=== PATIENT | male | born 1940 | race Caucasian/White ===

== ENCOUNTER 2017-12-22 08:51 | Inpatient (IN) | payer OTHER, SELFPAY ==
[2017-12-12 08:45] VITALS: BMI 27.4
[2017-12-22] VITALS (11 sets, daily range): BP systolic 99–122; BP diastolic 53–79; PULSE 87–109; RESP 10–18; TEMP 36.1–37; O2SAT 86–98; BMI 27.4
--- NOTE | 2017-12-22 | DI.RAD.S_ITS ---
PROCEDURE: XR KNEE RT 1TO2V INDICATIONS: POST OP TECHNIQUE: 2 view(s) of the knee acquired. COMPARISON: [facility] [place], CR, XR KNEE ARTHRITIC SERIES , 10/12/2017, 10:27. FINDINGS: Bones: Patient is status post knee joint arthroplasty. The medial hemiarthroplasty has been replaced with a total knee arthroplasty. Hardware components are in expected positions. Visualized bony structures are intact. Soft tissues: Overlying postoperative changes are noted including drainage tubing and skin joan. IMPRESSION: Acute postoperative changes of total right knee arthroplasty revision Dictated by: Sly Corea M.D. on 12/22/2017 at 15:30 Approved by: Sly Corea M.D. on 12/22/2017 at 15:32
[2017-12-22] MEDS: VANCOMYCIN 1,000 MG/200 ML FROZ.PIGGY 200 MG IV (09:30)
[2017-12-22] MEDS: LACTATED RINGERS 1,000 ML 42 ML IV (09:30)
[2017-12-22] MEDS: CELECOXIB 200 MG CAPSULE PO ×2 (09:48→09:49)
[2017-12-22] MEDS: ACETAMINOPHEN 325 MG TABLET 975 MG PO ×2 (09:49→21:59)
--- NOTE | 2017-12-22 11:03 | PM.PREOP ---
Pre-operative Note Interval Note Pre-op Check: History & Physical Reviewed by Physician and Exam Performed
--- NOTE | 2017-12-22 11:16 | P.OP_ITS ---
Operative Date/Time/Diagnoses Date of procedure: 12/22/17 Time of procedure: 11:54 Pre-op diagnosis: Osteoarthritis with history of prior right unicompartment knee arthroplasty Post-op diagnosis: same Procedure & Clinicians Procedure: Revision right total knee arthroplasty all components Same procedure as scheduled: Yes Indications: The patient has had progressively worsening right knee pain with a history of prior right knee medial compartment arthroplasty years ago with radiographic changes consistent with arthritis. Non-operative management has failed and the patient has requested revision right total knee replacement. The risks, benefits and alternatives to surgery were discussed with the patient prior to proceeding. Risks discussed included, but were not limited to, failure to relieve pain, stiffness, infection, nerve damage, deep venous thrombosis, pulmonary embolism, stroke, coma, heart attack, permanent paralysis and , as well as the potential need for eventual revision of the prosthetic. Surgeon: Dorothea Funes Electrical And Instrument Mechanic: Pieter Vanessa Anesthesia Type: General and Spinal Operative Notes Findings: Severe right knee patellofemoral and lateral compartment osteoarthritis without significant loosening of the medial compartment arthroplasty Closure Type: primary Specimen(s): other (Cultures) Implants & Drains: Right [facility] size 6 femur, 5 tibia, size 16 by 100 mm tibial stem, poly 10, patella 38 oval Applied: drain(s) Estimated Blood Loss (mL): 300 Blood products transfused: none Procedure in detail: The patient was seen in the pre-operative area, where the patient identified the right knee as the operative site and this was marked with my initials. The patient received pre-operative antibiotics, and was taken to the operating room and placed on the operative table in the supine position. After satisfactory anesthesia, a radio time sales supervisor out was performed. The right leg was encircled with a tourniquet about the proximal thigh, and the leg was prepared from the toes to the tourniquet with ChloroPrep in the usual fashion and draped through sterile drapes. The leg was elevated and exsanguinated with Eschmark bandage and the tourniquet inflated to [250] mmHg pressure. The knee was approached through an approximately 20 cm incision centered over the patella and carried into the knee through a medial parapatellar arthrotomy. A portion of the medial and lateral meniscus was resected. Soft tissue was carefully mobilized around the patella the patella was measured with a caliper. Bone was resected from the patella and the patellar height was reconstituted with up an appropriate sized patellar component. A cover was then placed on the patella. A small amount of additional medial and lateral meniscus was resected. Fluid was sent for cultures and additional cultures were taken from underneath the tibial component and the femoral component. A drill hole was made in the femur at and a distal femoral cut with pins were placed for a +2 cut. I resected the lateral aspect and partially around the medial femoral component. I left the pins in then work some friend circumferentially around the medial femoral condylar component removing it without difficulty. I placed the block back on the pins and finished the femoral cut. There was minimal bone loss from the medial femoral condyle. Retractors were then placed around the tibia. I used a combination of the revision osteotomes to meticulously freed the tibial component. A total of 10 mm were resected from the less worn lateral side that resulted in about a 2 mm cut off the medial side. Osteotomes were used to meticulously free the tibial component and to remove it. The tibial cut was finished using and at the tibial extramedullary guide. The extension gap was checked. It looked like it was between a 10mm blocks for extension balance. It was well balanced in full extension. The tibia was a size 5. The femoral component was a size 6. Placed an osteotome which was the correct thickness in the deficient posterior medial femoral condylar gap and set the femur in 3? of external rotation. The 6 femur was pinned into place and finishing cuts were made. There was no evidence of notching. The anterior, posterior and chamfer cuts were then made. The posterior osteophytes and soft tissues were then removed. The posterior capsule was injected with part of a mixture of 60 ml 0.25% Marcaine mixed with 20 ml Exparel for post operative pain control. The remainder of this mixture was injected into the capsule and subcutaneous tissues during cement curing. Trial reduction with a 6 femur and 5 tibia and a 10 poly showed excellent range of motion good tracking of the patella. He had some softening and some deficiency of his tibia and I opted to stem the tibial component. He also is chronically on steroids for ulcerative colitis. Pinned the tray into place reamed up to 16 did the punch drill and ream and was noted to fit well. Trial tibial and femoral components were then placed and the knee placed through a range of motion. Range of motion was [0-130], with good stability throughout the range. The trials were then removed, and the tibia was finished. The bone was prepared with pulsatile lavage, and dried with a sponge. Cement was applied and the final prosthetics placed. Excess cement was removed during and after cement curing. A brief Betadine soak was performed. After confirming there was no extruded cement posteriorly, the final tibial insert was placed. The knee was copiously irrigated and the tourniquet deflated. Hemostasis was obtained with the [Aquamantys system]. A drain was placed and brought out superolaterally. The capsule was closed with interrupted # 1 black braided suture. The subcutaneous layer was closed with barbed sutures, and the skin with a running 3 -0 V-Lock suture and Candice. An Aquacel Ag dressing was applied and the patient was taken to recovery having tolerated the procedure well. Complications: none Condition: stable Disposition: Acute Care Plan for aftercare: The patient will be maintained on a standard total knee replacement protocol with weight bearing as tolerated. The patient will receive aspirin and sequential compression devices for DVT prophylaxis. The patient will be discharged home when safe for the home environment.
[2017-12-22] MEDS: CEFAZOLIN 2 GM/100 ML FROZ.PIGGY IV ×2 (12:00→20:22)
--- NOTE | 2017-12-22 12:41 | SUR.OPER ---
Supine on padded OR bed. Pillow under head, arms secured on padded armboards <90 degree abduction. Safety belt across torso. Non-operative leg secured with tape over blanket over lower leg. Operative leg secured in DeMayo/Bobby positioner. Foam padded brace at thigh of operative leg.
[2017-12-22] MEDS: BUPIVACAINE LIPOSOME 266 MG/20 ML VIAL INJ (12:58)
[2017-12-22] MEDS: BUPIVACAINE 0.25% W/ EPI VIAL 50 ML INJ (13:10)
[2017-12-22] MEDS: SODIUM CHLORIDE 0.9% 1,000 ML 84 ML IV (14:48)
--- NOTE | 2017-12-22 15:44 | SUR.PHASEI ---
Report called to Summer.
--- NOTE | 2017-12-22 16:07 | SUR.PHASEI ---
Pt transferred to the floor. Vs stable. Report to Summer. Drsg cdi, hv clamped. + Rt radial pulse. Pt moving BLE. Belongings bag and glasses with pt
[2017-12-22] MEDS: LACTATED RINGERS 1,000 ML 125 ML IV (17:35)
[2017-12-22] MEDS: SODIUM CHLORIDE 0.9% FLUSH 10 ML IV (17:35)
[2017-12-22] MEDS: FISH OIL 1,000 MG CAPSULE 1000 MG PO (20:20)
[2017-12-22] MEDS: DOCUSATE 100 MG CAPSULE PO (20:20)
--- NOTE | 2017-12-22 21:40 | PC.NURSE ---
POST-OP Received pt at approximately 1600 via bed accompanied by INFANTRY UNIT LEADER. A&Ox3, pleasant and cooperative with care. RLE slighlt cooler to touch compared to LLE. ORDAZ with slight RLE weakness, 3-4/5 strength. pt denies any numbness/tingling. pt denies any pain. able to ambulate with bathroom and sit in chair with 1PA and FWW. hemovac intact, about 200ml bloody output this shift. pt oriented to room and call light.
[2017-12-23 00:21] VITALS: BP 106/69; PULSE 76; RESP 16; TEMP 36.7; O2SAT 96
[2017-12-23] MEDS: OXYCODONE IR 10 MG TABLET 5 MG PO ×3 (00:25→14:00)
--- NOTE | 2017-12-23 01:18 | PC.NURSE ---
Addendum entered by Mitzi Taylor R.N. 12/23/17 03:50: Patient informed of culture results and need for isolation. Questions asked/answered. Original Note: Addendum entered by Mitzi Taylor R.N. 12/23/17 02:56: Noted synovial fluid culture is growing gram + cocci so patient placed on contact isolation Original Note: Patient is alert and oriented. Breath sounds CTA with RA sat of 94%. HRR. Denies nausea. BT present but denies flatus as yet. Voiding per urinal and denies dysuria, frequency, urgency or incontinence. Is able to move self in bed. Aquacel dressing to right knee intact and is covered with fredy wrap; no drainage noted. Hemovac is intact and compressed. Does complain of throbbing 2/10 pain in right knee so medicated with Oxycodone and ice pack applied. CMS is intact. Wearing bilateral SCD's. Fall risk score is high and bed alarm is activated and explained to patient who verbalizes understanding.
[2017-12-23] MEDS: LACTATED RINGERS 1,000 ML 125 ML IV (01:35)
[2017-12-23] MEDS: CEFAZOLIN 2 GM/100 ML FROZ.PIGGY IV (03:46)
[2017-12-23 05:41] LABS: Hematocrit 36.5 % (41-53); Hemoglobin 12.3 g/dL (13.5-17.5)
[2017-12-23 05:55] VITALS: BP 121/81; PULSE 85; RESP 16; TEMP 36.4; O2SAT 95
[2017-12-23] MEDS: ACETAMINOPHEN 325 MG TABLET 975 MG PO (08:16)
[2017-12-23] MEDS: POLYETHYLENE GLYCOL 3350 17 GM POWD.PACK PO (08:18)
[2017-12-23] MEDS: MESALAMINE 400 MG CAP.DRTAB. 1200 MG PO (08:18)
[2017-12-23] MEDS: FISH OIL 1,000 MG CAPSULE 1000 MG PO (08:18)
[2017-12-23] MEDS: DOCUSATE 100 MG CAPSULE PO (08:20)
[2017-12-23] MEDS: ASPIRIN EC 81 MG TABLET 162 MG PO (08:20)
[2017-12-23] MEDS: NAPROXEN 250 MG TABLET PO (08:20)
[2017-12-23] MEDS: predniSONE 10 MG TABLET PO (08:20)
[2017-12-23 09:00] VITALS: BP 121/70; PULSE 81; RESP 16; O2SAT 94
--- NOTE | 2017-12-23 09:30 | PT.IIE ---
Current Diagnoses Unilateral primary osteoarthritis, right knee (12/22/17) Presence of right artificial knee joint (12/22/17) Surgery Performed Operation Date: 12/22/17 10:45 Actual Procedures p Total Knee Arthroplasty Revision(Right) - Dorothea Funes MD Surgical History (Last Updated 12/12/17 @ 08:58 by Melody Longoria, RN) History of bilateral knee arthroplasty (Acute) History of colonoscopy (Acute) History of tonsillectomy (Acute) History of total knee arthroplasty (Acute) History of vasectomy (Acute) Medical History (Last Updated 12/12/17 @ 08:54 by Melody Longoria, RN) Arthritis (Acute) Chronic pain (Acute) History of onychomycosis (Acute) Osteoarthrosis (Acute) Physical Therapy Inpatient Evaluation/Re-Eval M1 PT/OT-IP Prior Functional Status Start: 12/23/17 10:53 Freq: NEEDED Status: Active Protocol: Document 12/23/17 09:30 MDD (Rec: 12/23/17 11:02 MDD [email or web address]) Medical Review Prior Functional Status Medical History Reviewed Yes Mobility and Gait independent without AD Activities of Daily Living and IADL's independent without AD Social History Household Members spouse Living Arrangements House Number of Floors (Floors) One Floor Number of Stairs To Enter/Railing? NA Home Environment High Toilet Walk in Shower Built-In Shower Seat Home Equipment Front Wheel Walker Additional Social History Comment walk in tub and shower with built in shower seat. Pt lives in [facility] and his Maryuri is retired and available for assist in the home 03/01. M2 PT-IP Current Condition Start: 12/23/17 10:53 Freq: NEEDED Status: Active Protocol: Document 12/23/17 09:30 MDD (Rec: 12/23/17 11:02 MDD [email or web address]) Physical Therapy Current Condition Current Condition Evaluation Date 02/23/18 Treatment Diagnosis s/p R TKA, gait impairment, impaired mobility Onset Date 02/22/18 Weight Bearing Status Weight Bearing Status Weight Bear as Tolerated M3 PT-IP Subjective Start: 12/23/17 10:53 Freq: NEEDED Status: Active Protocol: Document 12/23/17 09:30 MDD (Rec: 12/23/17 11:02 MDD [email or web address]) Subjective Physical Therapy Visit Type Type Initial Evaluation Visit Start Time 08:50 Visit Stop Time 09:30 Total Visit Minutes 40 Number of WELT STITCH CLEANER Visits 0 Physical Therapy Visit Comments Patient Comments Pt is very motivated to go home. Reports he was up this am and ambulating in the room. Very little pain reported considering. Therapy Pain Assessment Pain When Pain Assessed At Rest Pain Present Pain Present Pain Reported Location Right Knee Intensity 5 Scale Used Numeric (1 - 10) Description Aching M4 PT-IP Mobility and Gait Start: 12/23/17 10:53 Freq: NEEDED Status: Active Protocol: Document 12/23/17 09:30 MDD (Rec: 12/23/17 11:02 MDD [email or web address]) PT-Bed Mobility Assessment Rolling Type of Rolling Bilateral Level of Assist Independent Supine to Sit Supine to Sit Independent Sit to Supine Sit to Supine Independent Scooting Scooting to Edge of Bed Independent Scooting Up and Down in Bed Independent PT-Transfer Assessment Sit to and From Stand Sit to and from Stand Standby Assistance Equipment Transfer Assistive Device Gait Belt Front Wheeled Walker Transfers Transfer Destination Bed Transfer Ability Level of Assist Standby Assistance Comments Mobility Comments standby assist due to iv attachment Gait Assessment Gait Gait Assistance Required: Standby Assistance Distance (Feet) (feet) 30 Able to Maintain Weight Bearing Status Yes During Gait Assistive Devices Assistive Device Gait Belt Front Wheeled Walker Orthotic/Prosthetic Devices or Brace: No Gait Deviations General Gait Pattern Antalgic Comments Gait Comments pt ambulating well with no balance deficits noted. SBA advised due to IV and drain lines PT-Balance Assessment Sitting Balance and Reactions Static Sitting Balance Ability Normal Dynamic Sitting Balance Ability Normal Standing Balance and Reactions Static Standing Balance Ability Normal Dynamic Standing Balance Ability Good M5 PT-IP Objective Assessments Start: 12/23/17 10:53 Freq: NEEDED Status: Active Protocol: Document 12/23/17 09:30 MDD (Rec: 12/23/17 11:02 MDD [email or web address]) Orientation Orientation/Cognition Level of Alertness Alert Orientation Name Age Birthday Month Date Year Day of Week Place Situation Language Function Ability No Deficits Noted Safety Awareness Understands Safety Issues Memory Description No Deficits Noted Gross Range of Motion Lower Extremity ROM Assessment Right Impaired Strength Lower Extremity Strength Assessment Within Functional Limits Coordination Assessment Gross Coordination Gross Coordination WNL Sensation Assessment Sensation Gross Sensation WNL M6 PT-IP Treatment Start: 12/23/17 10:53 Freq: NEEDED Status: Active Protocol: Document 12/23/17 09:30 MDD (Rec: 12/23/17 11:02 MDD [email or web address]) Physical Therapy Treatment Exercises Exercises Ankle Pumps Gluteal Sets Quad Sets Heel Slides Straight Leg Raises Supine Hip Abduction Knee ROM Measurement -8 to 103 (R) Education Education Provided Precautions Weight Bearing Status Post-Op Packet Safety M7 PT-IP Assessment and Plan Start: 12/23/17 10:53 Freq: NEEDED Status: Active Protocol: Document 12/23/17 09:30 MDD (Rec: 12/23/17 11:02 MDD [email or web address]) PT Summary Assessment and Plan Potential Rehabilitation Potential Excellent Status of Condition at Evaluation Stable Summary Impairments Pain ROM Gait Activity Tolerance Progress Towards Goals Progressing Toward Goals Assessment Summary Pt demonstrating excellent mobility and R knee ROM with very little pain. Had good understanding of exercises provided today. Review HEP and increase gait distance in afternoon prior to d/c home. Goals Bed Mobility Goal Independent Transfer Goal Independent Gait Goal Independent Gait Distance 150 feet on level ground with front wheeled walker Days to Meet Goals 1 Frequency of Treatment Frequency Of Treatment Twice a Day Treatment Plan Physical Therapy Treatment Plan Transfer Training Gait Training Therapeutic Exercise Post Op Education Discharge Planning Recommendations To Nursing Amount of Assist Needed Standby Assistance Discharge Recommendations PT Discharge Recommendations Home Home with Assistance
--- NOTE | 2017-12-23 12:05 | PT.IPTN ---
Current Diagnoses Unilateral primary osteoarthritis, right knee (12/22/17) Presence of right artificial knee joint (12/22/17) Surgery Performed Operation Date: 12/22/17 10:45 Actual Procedures p Total Knee Arthroplasty Revision(Right) - Dorothea Funes MD Physical Therapy Treatment Note M2 PT-IP Current Condition Start: 12/23/17 10:53 Freq: NEEDED Status: Active Protocol: Document 12/23/17 09:30 MDD (Rec: 12/23/17 11:02 MDD [email or web address]) Physical Therapy Current Condition Current Condition Evaluation Date 02/23/18 Treatment Diagnosis s/p R TKA, gait impairment, impaired mobility Onset Date 02/22/18 Weight Bearing Status Weight Bearing Status Weight Bear as Tolerated M3 PT-IP Subjective Start: 12/23/17 10:53 Freq: NEEDED Status: Active Protocol: Document 12/23/17 09:30 MDD (Rec: 12/23/17 11:02 MDD [email or web address]) Subjective Physical Therapy Visit Type Type Initial Evaluation Visit Start Time 08:50 Visit Stop Time 09:30 Total Visit Minutes 40 Number of ORTHO TECH Visits 0 Physical Therapy Visit Comments Patient Comments Pt is very motivated to go home. Reports he was up this am and ambulating in the room. Very little pain reported considering. Therapy Pain Assessment Pain When Pain Assessed At Rest Pain Present Pain Present Pain Reported Location Right Knee Intensity 5 Scale Used Numeric (1 - 10) Description Aching M4 PT-IP Mobility and Gait Start: 12/23/17 10:53 Freq: NEEDED Status: Active Protocol: Document 12/23/17 09:30 MDD (Rec: 12/23/17 11:02 MDD [email or web address]) PT-Bed Mobility Assessment Rolling Type of Rolling Bilateral Level of Assist Independent Supine to Sit Supine to Sit Independent Sit to Supine Sit to Supine Independent Scooting Scooting to Edge of Bed Independent Scooting Up and Down in Bed Independent PT-Transfer Assessment Sit to and From Stand Sit to and from Stand Standby Assistance Equipment Transfer Assistive Device Gait Belt Front Wheeled Walker Transfers Transfer Destination Bed Transfer Ability Level of Assist Standby Assistance Comments Mobility Comments standby assist due to iv attachment Gait Assessment Gait Gait Assistance Required: Standby Assistance Distance (Feet) (feet) 30 Able to Maintain Weight Bearing Status Yes During Gait Assistive Devices Assistive Device Gait Belt Front Wheeled Walker Orthotic/Prosthetic Devices or Brace: No Gait Deviations General Gait Pattern Antalgic Comments Gait Comments pt ambulating well with no balance deficits noted. SBA advised due to IV and drain lines PT-Balance Assessment Sitting Balance and Reactions Static Sitting Balance Ability Normal Dynamic Sitting Balance Ability Normal Standing Balance and Reactions Static Standing Balance Ability Normal Dynamic Standing Balance Ability Good M5 PT-IP Objective Assessments Start: 12/23/17 10:53 Freq: NEEDED Status: Active Protocol: Document 12/23/17 09:30 MDD (Rec: 12/23/17 11:02 MDD [email or web address]) Orientation Orientation/Cognition Level of Alertness Alert Orientation Name Age Birthday Month Date Year Day of Week Place Situation Language Function Ability No Deficits Noted Safety Awareness Understands Safety Issues Memory Description No Deficits Noted Gross Range of Motion Lower Extremity ROM Assessment Right Impaired Strength Lower Extremity Strength Assessment Within Functional Limits Coordination Assessment Gross Coordination Gross Coordination WNL Sensation Assessment Sensation Gross Sensation WNL M6 PT-IP Treatment Start: 12/23/17 10:53 Freq: NEEDED Status: Active Protocol: Document 12/23/17 09:30 MDD (Rec: 12/23/17 11:02 MDD [email or web address]) Physical Therapy Treatment Exercises Exercises Ankle Pumps Gluteal Sets Quad Sets Heel Slides Straight Leg Raises Supine Hip Abduction Knee ROM Measurement -8 to 103 (R) Education Education Provided Precautions Weight Bearing Status Post-Op Packet Safety M7 PT-IP Assessment and Plan Start: 12/23/17 10:53 Freq: NEEDED Status: Active Protocol: Document 12/23/17 09:30 MDD (Rec: 12/23/17 11:02 MDD [email or web address]) PT Summary Assessment and Plan Potential Rehabilitation Potential Excellent Status of Condition at Evaluation Stable Summary Impairments Pain ROM Gait Activity Tolerance Progress Towards Goals Progressing Toward Goals Assessment Summary Pt demonstrating excellent mobility and R knee ROM with very little pain. Had good understanding of exercises provided today. Review HEP and increase gait distance in afternoon prior to d/c home. Goals Bed Mobility Goal Independent Transfer Goal Independent Gait Goal Independent Gait Distance 150 feet on level ground with front wheeled walker Days to Meet Goals 1 Frequency of Treatment Frequency Of Treatment Twice a Day Treatment Plan Physical Therapy Treatment Plan Transfer Training Gait Training Therapeutic Exercise Post Op Education Discharge Planning Recommendations To Nursing Amount of Assist Needed Standby Assistance Discharge Recommendations PT Discharge Recommendations Home Home with Assistance
--- NOTE | 2017-12-23 12:18 | P.DS_ITS ---
History of Present Illness Date Patient Seen: 12/23/17 Time Patient Seen: 12:13 Chief complaint: [id number] Narrative: Status post revision right total knee arthroplasty Discharge Providers Date of admission: 12/22/17 08:51 Primary care physician: Avinash Bar MD Consults: 12/22/17 16:02 Consult to Discharge Planning Routine Comment: Consult to Physical Therapy Evaluate & Treat Comment: Physician Instructions: postop TKA protocol Consult to Respiratory Therapy Evaluate & Treat Comment: Physician Instructions: Evaluate and treat Discharge provider: Debbie Grimm PA-C Summary Discharge Diagnosis: status post revision right total knee arthroplasty Hospital Course: Horacio was admitted for revision right total knee arthroplasty with Dr. Funes and he consented to procedure. On postop day 1. He was feeling well and wanted to go home. He was up and ambulating with physical therapy. There was some question about the cultures having scant positive cocci , microbiology was called and discussed that it is likely debris. Patient does not need antibiotics at this time. Continue current pain control. On day of discharge he was eating and voiding without difficulty or assistance. Calves were soft, compressible, nontender bilaterally. Status at Discharge Functional status at discharge: uses cane/walker Exam Vital Signs (past 8 hours): - 12/23/17 05:55 12/23/17 09:00 Temperature 97.5 F L Pulse Rate 85 81 Respiratory Rate 16 16 Blood Pressure 121/81 H 121/70 H Pulse Oximetry 95 94 Oxygen Delivery Method Room Air Oxygen Flow Rate 0 Narrative Exam Narrative: Patient lying in bed in no acute distress. Drain was clamped last night. Okayed to unclamp at 10:00 a.m. this morning. Plan to remove Hemovac drain before discharge. Dressing on right knee CDI, Richard wrap remains in place. Calves are soft, compressible, nontender bilaterally. Sensation intact to light touch throughout bilateral lower extremities. Pulses are symmetrical. His pain is well controlled. He has been up and ambulating with therapy. Denies any chest pain nausea, or vomiting. Objective Labs Result Diagrams: 12/23/17 05:00 Labs: Laboratory Results - last 24 hr 12/23/17 05:00 Hgb 12.3 L Hct 36.5 L Discharge Plan Discharge Plan Patient Disposition: Home, Self-Care Discharge comment: DC home today, remove drain prior to discharge Discharge Med Rec/Prescriptions Prescriptions: New acetaminophen 325 mg Tablet 325 mg PO Q4HR Qty: 60 RF: 0 docusate sodium 100 mg Capsule 100 mg PO BID Qty: 60 RF: 0 naproxen 250 mg Tablet 250 mg PO DAILY Qty: 30 RF: 0 oxycodone 5 mg capsule 5 mg PO Q4HR Qty: 50 RF: 0 Continue [FISH OIL] 1,000 mg PO BID Qty: 0 RF: 0 mesalamine [Lialda] 1.2 GM tablet,delayed release (DR/EC) 1.2 gm PO QDAY Qty: 90 RF: 3 prednisone 10 MG tablet 10 mg PO AMCC Qty: 90 RF: 3 paroxetine HCl [Paxil] 40 mg tablet 40 mg PO QDAY Qty: 90 RF: 1 Changed aspirin 81 MG tablet,delayed release (DR/EC) 81 mg PO BID Qty: 0 RF: 0 Discontinued naproxen sodium [Aleve] 220 mg Tablet 220 mg PO DAILY RF: 0 Follow up/Referrals: Dorothea Funes MD [Physician] - (Please follow up in 5-7 days with our office) Provider Discharge Instructions Diet: Diet as Tolerated Cold/Heat Therapy: As needed Wound Care Report to your healthcare provider any signs of infection, such as:: chills, fever and increased pain Dressing: Please leave Aquacel dressing in place for 10-14 days Visit Report/Discharge Packet Instructions: DI for Knee Replacement Discharge Data Primary Care Provider: Avinash Bar Attending Provider: Dorothea Funes Admit Date/Time: 12/22/17 08:51 Quality VTE Deep Vein Thrombosis/Pulmonary Embolism Present on Admission: No
[2017-12-23 13:00] VITALS: BP 103/66; PULSE 85; RESP 16; TEMP 36.7; O2SAT 96
--- NOTE | 2017-12-23 15:29 | PC.NURSE ---
DISCHARGE: HV WAS DC'D THIS AFTERNOON W/ 60CC'S OF SANG DRAINAGE AFTER UNCLAMPED AT 1030 AFTER DISCUSSION WITH ORTHO PA. NO BLEEDING AFTER DC'D. 2X2 AND TEGADERM PLACED. IV DC'D INTACT. VOIDED 800CC'S URINE. PATIENT'S RIDE ARRIVED AND HE WAS ESCORTED BY WC BY [employer] W/ ALL BELONGINGS, SCRIPTS AND PAPERWORK IN NO S/SX'S OF DISTRESS.
== END 2017-12-23 14:45 | disposition home or self-care (01) | DRG 468 ==
PROVIDERS: Admitting Provider Orthopaedic Surgery; Family Provider Family Medicine; PCP Family Medicine; Visit Provider Orthopaedic Surgery
PROC: 0SPV0JZ Removal of Synthetic Substitute from Right Knee Joint, Tibial Surface, Open Approach (ICD-10-PCS; principal; 2017-12-22 10:45)
DX: T84.032A Mechanical loosening of internal right knee prosthetic joint, initial encounter (principal); M17.11 Unilateral primary osteoarthritis, right knee; E78.5 Hyperlipidemia, unspecified; F32.9 Major depressive disorder, single episode, unspecified; Z87.891 Personal history of nicotine dependence
CPT/HCPCS: 36415; 73560; 85014; 85018; 87070; 87075; 87205; 97110; 97116; 97161; C1776; A9270; C9290; J0690; J1100; J2250; J2405; J2704; J3010; J3370

== ENCOUNTER 2018-01-27 09:45 | Outpatient (RCR) | payer OTHER, SELFPAY ==
[2017-12-22 16:06] VITALS: BMI 27.4
--- NOTE | 2018-01-10 13:10 | PT.OIE ---
Current Diagnoses Unilateral primary osteoarthritis, right knee (01/09/18) Presence of right artificial knee joint (01/09/18) Presence of left artificial knee joint (01/09/18) Past Medical History (Last Updated 12/12/17 @ 08:54 by Melody Longoria RN) Arthritis (Acute) Chronic pain (Acute) History of onychomycosis (Acute) Osteoarthrosis (Acute) Past Surgical History (Last Updated 12/12/17 @ 08:58 by Melody Longoria RN) History of bilateral knee arthroplasty (Acute) History of colonoscopy (Acute) History of tonsillectomy (Acute) History of total knee arthroplasty (Acute) History of vasectomy (Acute) Provider Visit Care Team Role Provider Type Aivnash Bar MD Family Provider Physician Primary Care Provider Specialty: Family Practice Address: [address] [place] [address], [id number] Email: [email or web address] Dorothea Funes MD Attending Provider Physician Specialty: Orthopedic Surgery Address: [address] [place] [address], [id number] Email: [email or web address] Physical Therapy Initial Evaluation PT-OP-A Visit Information Start: 01/09/18 16:06 Freq: Status: Active Protocol: Document 01/09/18 17:01 EA (Rec: 01/09/18 17:37 EA [id number]) Out-Patient Physical Therapy Visit Information Visit Information Visit Type Initial Evaluation Visit Start Time 13:00 Visit Stop Time 13:40 Total Visit Minutes 40 Visit Number 1 Evaluation Information Evaluation Date 01/09/18 PT-OP-B Current Condition Start: 01/09/18 16:06 Freq: Status: Active Protocol: Document 01/09/18 17:01 EA (Rec: 01/09/18 17:37 EA [id number]) Current Condition History of Current Condition Onset Date S/P R TKA 12/22/17 Current Complaints C/O Right knee pain, weakness and limitation of motion History of Current Condition S/P R TKA 12/22/17 with no secondary healing. Future Testing and Treatments Planned Surgeons follow up 2 weeks from today's date. Treatment Goals Patient/Caregiver Goals Back to PLOF: Regular gym exercises and indep in ADL's without use of walking device. Prior Functional Status Baseline Function- ADL's Independent Baseline Function- Mobility Independent Baseline Function- Recreation/Hobbies Daily fitness exercises in the gym Current Functional Impairments (Reported) Functional Limitations- ADL's Indep with minimal difficulty Functional Limitations- Mobility/Gait Antalgic gait, minimal Functional Limitations- Recreation/ Unable to come back to regular Hobbies fitness activity PT-OP-C Subjective Start: 01/09/18 16:06 Freq: Status: Active Protocol: Document 01/09/18 17:01 EA (Rec: 01/09/18 17:37 EA [id number]) OP-PT Subjective Patient Comments Patient Comments S/P R TKA 12/22/17 C/O Right knee pain, weakness and limitation of motion. Back to PLOF: Regular gym exercises and indep in ADL's without use of [employer] device . Patient Reported Progress Improving Patient Questionnaires Lower Extremity Functional Scale LEFS Impairment 40 to 59% Impaired (Score 32- 47) PT-OP-G Mobility & Gait Start: 01/09/18 16:06 Freq: Status: Active Protocol: Document 01/09/18 17:01 EA (Rec: 01/09/18 17:37 EA [id number]) OP Gait Assessment Gait Gait Assistance Required: Independent Able to Maintain Weight Bearing Status Yes During Gait Gait Deviations General Gait Pattern Antalgic Factors Limiting Gait Function Factors Limiting Gait Function Decreased Strength Limited Range of Motion Pain Comments Gait Comments Mild antalgic Stair Climbing Evaluation Evaluation Level of Assist On Stairs Independent Devices Stair Climbing Assistive Devices None Technique/Endurance Stair Climbing Direction Ascend and Descend Stair Climbing Technique Step Over Step Comments Stair Climbing Comments slight difficulty during descent at 4' steps PT-OP-J Posture/Palpation/Skin Start: 01/09/18 16:06 Freq: Status: Active Protocol: Document 01/09/18 17:01 EA (Rec: 01/09/18 17:37 EA [id number]) Palpation Assessment Location One Palpation Location Right quads and hamstring, knee joint, scar tissue Palpation Findings Edema Tenderness PT-OP-K Range of Motion Start: 01/09/18 16:06 Freq: Status: Active Protocol: Document 01/09/18 17:01 EA (Rec: 01/09/18 17:37 EA [id number]) Knee Goniometric Range of Motion Knee Measured in Degrees Right Patient Position Supine Flexion Active (degrees) 117 Extension Active (degrees) 0 Left Patient Position Supine Flexion Active (degrees) 125 Extension Active (degrees) 0 Knee ROM Limitations Knee ROM Limitations Soft Tissue Tightness Swelling PT-OP-M Strength Start: 01/09/18 16:06 Freq: Status: Active Protocol: Document 01/09/18 17:01 EA (Rec: 01/09/18 17:37 EA [id number]) Knee Strength Knee Manual Muscle Testing Right Flexion (S2) 4- Good- Extension (L3) 3+ Fair+ Reason Not Measured Orthopedic Precautions Left Flexion (S2) 5 Normal Extension (L3) 5 Normal PT-OP-Q Treatments Start: 01/09/18 16:06 Freq: Status: Active Protocol: Document 01/09/18 17:00 EA (Rec: 01/10/18 07:29 EA [id number]) Self-Care/Home Management Treatment Education Patient Education Home Exercise Program Joint Protection Pain Management Safety PT-OP-T Assessment and Plan Start: 01/09/18 16:06 Freq: Status: Active Protocol: Document 01/09/18 17:01 EA (Rec: 01/09/18 17:37 EA [id number]) Physical Therapy Assessment Rehab Potential Rehabilitation Potential Excellent Evaluation Complexity Number of Personal Factors/Comorbidities 0 Number of Body Systems Impaired 1-2 Clinical Presentation at Evaluation Stable Impairments Impairments Edema Gait Pain ROM Soft Tissue Mobility Strength Goals Four Impairment Mid joint increased circumferential measurement by 1.5 R> L Manager Of Data Goal (LTG) Patient will decrease knee circumference to less than 16 to improve ROM LTG Duration 4 wks Three Impairment LEFS score of 53/80 Retirement Goal (LTG) Patient will have LEFS score of at least 60 LTG Duration 4 wks Two Impairment Decreased strength: 3+/5 with right knee extension Retirement Goal (LTG) Patient will exhibit MMT on right knee extensor of at least 4/5 for functional mobility LTG Duration 4 wks One Impairment 8 degrees knee flexion deficits Manager Of Data Goal (LTG) Patient will exhibits 0-125 deg active knee flexion for functional mobility/activity LTG Duration 4 wks Assessment Summary Assessment S/P Right TKA 12/22/17, pleasant 77 y/o male patient who presented today with no secondary healing. Patient demonstrates difficulty with functional mobility due to LOM , swelling and weakness. Patient will benefit with skilled PT to reach previous level of function. Patient is a good candidate for skilled PT. Physical Therapy Plan Frequency and Duration Frequency of Treatment 2x/Week Plan of Care Start Date 01/09/18 Plan of Care End Date 03/06/18 Therapeutic Interventions Therapeutic Interventions Balance Training Gait Training Home Exercise Program Joint Mobilizations Manual Therapy Patient/Caregiver Education Self-Care/Home Management Soft Tissue Mobilization Therapeutic Exercises Modalities Cold Pack/Ice Massage Ultrasound Next Visit Focus/Plan Next Note Type Treatment Note Next Visit Plan 1. Increase ROM 2. Decrease swelling 3. decrease pain 4. decrease scarring
--- NOTE | 2018-01-10 13:12 | PT.OPPOC ---
Current Diagnoses Unilateral primary osteoarthritis, right knee (01/09/18) Presence of right artificial knee joint (01/09/18) Presence of left artificial knee joint (01/09/18) Provider Visit Care Team Role Provider Type Avinash Bar MD Family Provider Physician Primary Care Provider Specialty: Family Practice Address: [address] [place] [address], [phone] Email: [email or web address] Dorothea Funes MD Attending Provider Physician Specialty: Orthopedic Surgery Address: [address] [place] [address], [phone] Email: [email or web address] Plan Of Care PT-OP-T Assessment and Plan Start: 01/09/18 16:06 Freq: Status: Active Protocol: Document 01/09/18 17:01 EA (Rec: 01/09/18 17:37 EA [id number]) Physical Therapy Assessment Rehab Potential Rehabilitation Potential Excellent Evaluation Complexity Number of Personal Factors/Comorbidities 0 Number of Body Systems Impaired 1-2 Clinical Presentation at Evaluation Stable Impairments Impairments Edema Gait Pain ROM Soft Tissue Mobility Strength Goals Four Impairment Mid joint increased circumferential measurement by 1.5 R> L Crown Assembly Machine Operator Goal (LTG) Patient will decrease knee circumference to less than 16 to improve ROM LTG Duration 4 wks Three Impairment LEFS score of 53/80 Crown Assembly Machine Operator Goal (LTG) Patient will have LEFS score of at least 60 LTG Duration 4 wks Two Impairment Decreased strength: 3+/5 with right knee extension Fdc Goal (LTG) Patient will exhibit MMT on right knee extensor of at least 4/5 for functional mobility LTG Duration 4 wks One Impairment 8 degrees knee flexion deficits Crown Assembly Machine Operator Goal (LTG) Patient will exhibits 0-125 deg active knee flexion for functional mobility/activity LTG Duration 4 wks Assessment Summary Assessment S/P Right TKA 12/22/17, pleasant 77 y/o male patient who presented today with no secondary healing. Patient demonstrates difficulty with functional mobility due to LOM , swelling and weakness. Patient will benefit with skilled PT to reach previous level of function. Patient is a good candidate for skilled PT. Physical Therapy Plan Frequency and Duration Frequency of Treatment 2x/Week Plan of Care Start Date 01/09/18 Plan of Care End Date 03/06/18 Therapeutic Interventions Therapeutic Interventions Balance Training Gait Training Home Exercise Program Joint Mobilizations Manual Therapy Patient/Caregiver Education Self-Care/Home Management Soft Tissue Mobilization Therapeutic Exercises Modalities Cold Pack/Ice Massage Ultrasound Next Visit Focus/Plan Next Note Type Treatment Note Next Visit Plan 1. Increase ROM 2. Decrease swelling 3. decrease pain 4. decrease scarring Plan of Care Dates Plan of Care Start Date 01/09/18 Plan of Care End Date 03/06/18 Please Sign and Return: I have reviewed this Plan of Care and certify that the skilled therapy services above are required to meet the patient?s needs. Physician Signature Date Printed Name and Credentials Clinical Instructor Signature Printed Name and Credentials
--- NOTE | 2018-01-13 10:28 | PT.OTN ---
Current Diagnoses Unilateral primary osteoarthritis, right knee (01/13/18) Presence of right artificial knee joint (01/13/18) Presence of left artificial knee joint (01/13/18) Physical Therapy Treatment Note PT-OP-A Visit Information Start: 01/09/18 16:06 Freq: Status: Active Protocol: Document 01/13/18 09:45 DCW (Rec: 01/13/18 10:28 DCW [id number]) Out-Patient Physical Therapy Visit Information Visit Information Visit Type Treatment Note Visit Start Time 09:45 Visit Stop Time 10:30 Total Visit Minutes 45 Visit Number 2 Evaluation Information Evaluation Date 01/09/18 PT-OP-B Current Condition Start: 01/09/18 16:06 Freq: Status: Active Protocol: Document 01/09/18 17:01 EA (Rec: 01/09/18 17:37 EA [id number]) Current Condition History of Current Condition Onset Date S/P R TKA 12/22/17 Current Complaints C/O Right knee pain, weakness and limitation of motion History of Current Condition S/P R TKA 12/22/17 with no secondary healing. Future Testing and Treatments Planned Surgeons follow up 2 weeks from today's date. Treatment Goals Patient/Caregiver Goals Back to PLOF: Regular gym exercises and indep in ADL's without use of wlaking device. Prior Functional Status Baseline Function- ADL's Independent Baseline Function- Mobility Independent Baseline Function- Recreation/Hobbies Daily fitness exercises in the gym Current Functional Impairments (Reported) Functional Limitations- ADL's Indep with minimal difficulty Functional Limitations- Mobility/Gait Antalgic gait, minimal Functional Limitations- Recreation/ Unable to come back to regular Hobbies fitness activity PT-OP-C Subjective Start: 01/09/18 16:06 Freq: Status: Active Protocol: Document 01/13/18 09:45 DCW (Rec: 01/13/18 10:28 DCW [id number]) OP-PT Subjective Patient Comments Patient Comments Pt reports he is feeling pretty good already, but notes that he has some minimal pain on his lateral right knee. Ambulating well with no assistive device, minimal antalgia. PT-OP-G Mobility & Gait Start: 01/09/18 16:06 Freq: Status: Active Protocol: Document 01/09/18 17:01 EA (Rec: 01/09/18 17:37 EA [id number]) OP Gait Assessment Gait Gait Assistance Required: Independent Able to Maintain Weight Bearing Status Yes During Gait Gait Deviations General Gait Pattern Antalgic Factors Limiting Gait Function Factors Limiting Gait Function Decreased Strength Limited Range of Motion Pain Comments Gait Comments Mild antalgic Stair Climbing Evaluation Evaluation Level of Assist On Stairs Independent Devices Stair Climbing Assistive Devices None Technique/Endurance Stair Climbing Direction Ascend and Descend Stair Climbing Technique Step Over Step Comments Stair Climbing Comments slight difficulty during descent at 4' steps PT-OP-J Posture/Palpation/Skin Start: 01/09/18 16:06 Freq: Status: Active Protocol: Document 01/09/18 17:01 EA (Rec: 01/09/18 17:37 EA [id number]) Palpation Assessment Location One Palpation Location Right quads and hamstring, knee joint, scar tissue Palpation Findings Edema Tenderness PT-OP-K Range of Motion Start: 01/09/18 16:06 Freq: Status: Active Protocol: Document 01/09/18 17:01 EA (Rec: 01/09/18 17:37 EA [id number]) Knee Goniometric Range of Motion Knee Measured in Degrees Right Patient Position Supine Flexion Active (degrees) 117 Extension Active (degrees) 0 Left Patient Position Supine Flexion Active (degrees) 125 Extension Active (degrees) 0 Knee ROM Limitations Knee ROM Limitations Soft Tissue Tightness Swelling PT-OP-M Strength Start: 01/09/18 16:06 Freq: Status: Active Protocol: Document 01/09/18 17:01 EA (Rec: 01/09/18 17:37 EA [id number]) Knee Strength Knee Manual Muscle Testing Right Flexion (S2) 4- Good- Extension (L3) 3+ Fair+ Reason Not Measured Orthopedic Precautions Left Flexion (S2) 5 Normal Extension (L3) 5 Normal PT-OP-Q Treatments Start: 01/09/18 16:06 Freq: Status: Active Protocol: Document 01/13/18 09:45 DCW (Rec: 01/13/18 10:28 DCW [id number]) Cardio Equipment Recumbent Bicycle Duration (Minutes) 5 Resistance 3 Seat Position 5 Gym Equipment Shuttle Recovery Unilateral Squats Resistance 75# Shuttle Recovery Platform Stable Bilateral Squats Resistance 125# Shuttle Recovery Platform Stable Shuttle Balance 1 Details Red - Wide DYAN, Staggered Stance Therapeutic Exercises Supine Exercises 2 Supine Exercise Name SAQ Side right Resistance 5# Equipment Used Ankle weight 1 Supine Exercise Name SLR Side right Resistance 5# Equipment Used Ankle weight Standing Exercises 2 Standing Exercise Name Flexion step stretch Side right 1 Standing Exercise Name TKE Side right Resistance Lv 3 Equipment Used T-band Other Exercises 2 Other Exercise Name Resisted Forward/Retro Ambulation Side bilateral Resistance Green Equipment Used T-band 1 Other Exercise Name Resisted Side-stepping Side bilateral Resistance Green Equipment Used T-band PT-OP-T Assessment and Plan Start: 01/09/18 16:06 Freq: Status: Active Protocol: Document 01/13/18 09:45 DCW (Rec: 01/13/18 10:28 DCW [id number]) Physical Therapy Assessment Impairments Impairments Edema Gait Pain ROM Soft Tissue Mobility Strength Goals Four Impairment Mid joint increased circumferencial measurement by 1.5 R> L Custodial Goal (LTG) Patient will decrease knee circumference to less than 16 to improve ROM LTG Duration 4 wks Three Impairment LEFS score of 53/80 Lcac Operator Goal (LTG) Patient will have LEFS score of at least 60 LTG Duration 4 wks Two Impairment Decreased strength: 3+/5 with right knee extension Custodial Goal (LTG) Patient will exhibit MMT on right knee extensor of at least 4/5 for functional mobility LTG Duration 4 wks One Impairment 8 degrees knee flexion deficits Custodial Goal (LTG) Patient will exhibits 0-125 deg active knee flexion for functional mobility/activity LTG Duration 4 wks Assessment Summary Assessment Pt doing very well s/p R TKA. Pt flexion already 126 degrees , with 0 extension. Pt able to get full rotation on recumbent bicycle, and displays very minimal antalgia with gait. Pt to exhibit an 8 degree extension lag during SLR, which indicates remaining quad weakness. Physical Therapy Plan Frequency and Duration Frequency of Treatment 2x/Week Plan of Care Start Date 01/09/18 Plan of Care End Date 03/06/18 Therapeutic Interventions Therapeutic Interventions Balance Training Gait Training Home Exercise Program Joint Mobilizations Manual Therapy Patient/Caregiver Education Self-Care/Home Management Soft Tissue Mobilization Therapeutic Exercises Modalities Cold Pack/Ice Massage Ultrasound Next Visit Focus/Plan Next Note Type Treatment Note Next Visit Plan 1. Increase ROM 2. Decrease swelling 3. decrease pain 4. decrease scarring
--- NOTE | 2018-01-16 10:37 | PT.OTN ---
Current Diagnoses Unilateral primary osteoarthritis, right knee (01/16/18) Presence of right artificial knee joint (01/16/18) Presence of left artificial knee joint (01/16/18) Physical Therapy Treatment Note PT-OP-A Visit Information Start: 01/09/18 16:06 Freq: Status: Active Protocol: Document 01/16/18 09:04 EA (Rec: 01/16/18 09:43 EA [id number]) Out-Patient Physical Therapy Visit Information Visit Information Visit Type Treatment Note Visit Start Time 09:00 Visit Stop Time 10:45 Total Visit Minutes 45 Visit Number 3 PT-OP-B Current Condition Start: 01/09/18 16:06 Freq: Status: Active Protocol: Document 01/09/18 17:01 EA (Rec: 01/09/18 17:37 EA [id number]) Current Condition History of Current Condition Onset Date S/P R TKA 12/22/17 Current Complaints C/O Right knee pain, weakness and limitation of motion History of Current Condition S/P R TKA 12/22/17 with no secondary healing. Future Testing and Treatments Planned Surgeons follow up 2 weeks from today's date. Treatment Goals Patient/Caregiver Goals Back to PLOF: Regular gym exercises and indep in ADL's without use of wlaking device. Prior Functional Status Baseline Function- ADL's Independent Baseline Function- Mobility Independent Baseline Function- Recreation/Hobbies Daily fitness exercises in the gym Current Functional Impairments (Reported) Functional Limitations- ADL's Indep with minimal difficulty Functional Limitations- Mobility/Gait Antalgic gait, minimal Functional Limitations- Recreation/ Unable to come back to regular Hobbies fitness activity PT-OP-C Subjective Start: 01/09/18 16:06 Freq: Status: Active Protocol: Document 01/16/18 09:04 EA (Rec: 01/16/18 09:43 EA [id number]) OP-PT Subjective Patient Comments Patient Comments Pt reports no increased in sypmtoms after last session and up to today's date. PT-OP-G Mobility & Gait Start: 01/09/18 16:06 Freq: Status: Active Protocol: Document 01/09/18 17:01 EA (Rec: 01/09/18 17:37 EA [id number]) OP Gait Assessment Gait Gait Assistance Required: Independent Able to Maintain Weight Bearing Status Yes During Gait Gait Deviations General Gait Pattern Antalgic Factors Limiting Gait Function Factors Limiting Gait Function Decreased Strength Limited Range of Motion Pain Comments Gait Comments Mild antalgic Stair Climbing Evaluation Evaluation Level of Assist On Stairs Independent Devices Stair Climbing Assistive Devices None Technique/Endurance Stair Climbing Direction Ascend and Descend Stair Climbing Technique Step Over Step Comments Stair Climbing Comments slight difficulty during descent at 4' steps PT-OP-J Posture/Palpation/Skin Start: 01/09/18 16:06 Freq: Status: Active Protocol: Document 01/09/18 17:01 EA (Rec: 01/09/18 17:37 EA [id number]) Palpation Assessment Location One Palpation Location Right quads and hamstring, knee joint, scar tissue Palpation Findings Edema Tenderness PT-OP-K Range of Motion Start: 01/09/18 16:06 Freq: Status: Active Protocol: Document 01/09/18 17:01 EA (Rec: 01/09/18 17:37 EA [id number]) Knee Goniometric Range of Motion Knee Measured in Degrees Right Patient Position Supine Flexion Active (degrees) 117 Extension Active (degrees) 0 Left Patient Position Supine Flexion Active (degrees) 125 Extension Active (degrees) 0 Knee ROM Limitations Knee ROM Limitations Soft Tissue Tightness Swelling PT-OP-M Strength Start: 01/09/18 16:06 Freq: Status: Active Protocol: Document 01/09/18 17:01 EA (Rec: 01/09/18 17:37 EA [id number]) Knee Strength Knee Manual Muscle Testing Right Flexion (S2) 4- Good- Extension (L3) 3+ Fair+ Reason Not Measured Orthopedic Precautions Left Flexion (S2) 5 Normal Extension (L3) 5 Normal PT-OP-Q Treatments Start: 01/09/18 16:06 Freq: Status: Active Protocol: Document 01/16/18 09:04 EA (Rec: 01/16/18 09:43 EA [id number]) Cardio Equipment Recumbent Bicycle Duration (Minutes) 5 Resistance 3 Seat Position 5 Gym Equipment Shuttle Recovery Unilateral Squats Resistance 75# Shuttle Recovery Platform Stable Bilateral Squats Resistance 125# Shuttle Recovery Platform Stable Shuttle Balance 1 Details Red - Wide DYAN, Staggered Stance Therapeutic Exercises Supine Exercises 2 Supine Exercise Name SAQ Side right Resistance 5# Equipment Used Ankle weight 1 Supine Exercise Name SLR Side right Resistance 5# Equipment Used Ankle weight Standing Exercises 2 Standing Exercise Name Flexion step stretch Side right 1 Standing Exercise Name TKE Side right Resistance Lv 3 Equipment Used T-band Other Exercises 2 Other Exercise Name Resisted Forward/Retro Ambulation Side bilateral Resistance Green Equipment Used T-band 1 Other Exercise Name Resisted Side-stepping Side bilateral Resistance Green Equipment Used T-band Manual Therapy Treatment Soft Tissue Mobilization 1 Body Location Scar region Mobilization Type Cross-Friction Intensity/Depth Superficial Body Position Supine Comments 5 minutes PT-OP-R Modalities Start: 01/09/18 16:06 Freq: Status: Active Protocol: Document 01/16/18 09:43 EA (Rec: 01/16/18 09:43 EA [id number]) Hot Pack/Cold Pack Treatment Cold Pack Location right knee Patient Position Supine Patient Tolerance Good PT-OP-T Assessment and Plan Start: 01/09/18 16:06 Freq: Status: Active Protocol: Document 01/16/18 09:04 EA (Rec: 01/16/18 09:43 EA [id number]) Physical Therapy Assessment Assessment Summary Assessment Pt tolerated treatment well. Standing shuttle balance is quite difficult with patient but able to progress from double hand to single hand support in staggered stance. Physical Therapy Plan Next Visit Focus/Plan Next Note Type Treatment Note Next Visit Plan Cont with current plan.
--- NOTE | 2018-01-20 10:17 | PT.OTN ---
Current Diagnoses Unilateral primary osteoarthritis, right knee (01/20/18) Presence of right artificial knee joint (01/20/18) Presence of left artificial knee joint (01/20/18) Physical Therapy Treatment Note PT-OP-A Visit Information Start: 01/09/18 16:06 Freq: Status: Active Protocol: Document 01/20/18 09:30 DCW (Rec: 01/20/18 10:17 DCW [id number]) Out-Patient Physical Therapy Visit Information Visit Information Visit Type Treatment Note Visit Start Time 09:30 Visit Stop Time 10:25 Total Visit Minutes 55 Visit Number 4 Evaluation Information Evaluation Date 01/09/18 PT-OP-B Current Condition Start: 01/09/18 16:06 Freq: Status: Active Protocol: Document 01/09/18 17:01 EA (Rec: 01/09/18 17:37 EA [id number]) Current Condition History of Current Condition Onset Date S/P R TKA 12/22/17 Current Complaints C/O Right knee pain, weakness and limitation of motion History of Current Condition S/P R TKA 12/22/17 with no secondary healing. Future Testing and Treatments Planned Surgeons follow up 2 weeks from today's date. Treatment Goals Patient/Caregiver Goals Back to PLOF: Regular gym exercises and indep in ADL's without use of wlaking device. Prior Functional Status Baseline Function- ADL's Independent Baseline Function- Mobility Independent Baseline Function- Recreation/Hobbies Daily fitness exercises in the gym Current Functional Impairments (Reported) Functional Limitations- ADL's Indep with minimal difficulty Functional Limitations- Mobility/Gait Antalgic gait, minimal Functional Limitations- Recreation/ Unable to come back to regular Hobbies fitness activity PT-OP-C Subjective Start: 01/09/18 16:06 Freq: Status: Active Protocol: Document 01/20/18 09:30 DCW (Rec: 01/20/18 10:17 DCW [id number]) OP-PT Subjective Patient Comments Patient Comments Continues to do well, no new complaints, but still notes mild (1-2/10) pain along lateral right knee PT-OP-G Mobility & Gait Start: 01/09/18 16:06 Freq: Status: Active Protocol: Document 01/09/18 17:01 EA (Rec: 01/09/18 17:37 EA [id number]) OP Gait Assessment Gait Gait Assistance Required: Independent Able to Maintain Weight Bearing Status Yes During Gait Gait Deviations General Gait Pattern Antalgic Factors Limiting Gait Function Factors Limiting Gait Function Decreased Strength Limited Range of Motion Pain Comments Gait Comments Mild antalgic Stair Climbing Evaluation Evaluation Level of Assist On Stairs Independent Devices Stair Climbing Assistive Devices None Technique/Endurance Stair Climbing Direction Ascend and Descend Stair Climbing Technique Step Over Step Comments Stair Climbing Comments slight difficulty during descent at 4' steps PT-OP-J Posture/Palpation/Skin Start: 01/09/18 16:06 Freq: Status: Active Protocol: Document 01/09/18 17:01 EA (Rec: 01/09/18 17:37 EA [id number]) Palpation Assessment Location One Palpation Location Right quads and hamstring, knee joint, scar tissue Palpation Findings Edema Tenderness PT-OP-K Range of Motion Start: 01/09/18 16:06 Freq: Status: Active Protocol: Document 01/09/18 17:01 EA (Rec: 01/09/18 17:37 EA [id number]) Knee Goniometric Range of Motion Knee Measured in Degrees Right Patient Position Supine Flexion Active (degrees) 117 Extension Active (degrees) 0 Left Patient Position Supine Flexion Active (degrees) 125 Extension Active (degrees) 0 Knee ROM Limitations Knee ROM Limitations Soft Tissue Tightness Swelling PT-OP-M Strength Start: 01/09/18 16:06 Freq: Status: Active Protocol: Document 01/09/18 17:01 EA (Rec: 01/09/18 17:37 EA [id number]) Knee Strength Knee Manual Muscle Testing Right Flexion (S2) 4- Good- Extension (L3) 3+ Fair+ Reason Not Measured Orthopedic Precautions Left Flexion (S2) 5 Normal Extension (L3) 5 Normal PT-OP-Q Treatments Start: 01/09/18 16:06 Freq: Status: Active Protocol: Document 01/20/18 09:30 DCW (Rec: 01/20/18 10:17 DCW [id number]) Cardio Equipment Recumbent Bicycle Duration (Minutes) 5 Resistance 4 Seat Position 3 Gym Equipment Shuttle Recovery Unilateral Squats Resistance 75# Shuttle Recovery Platform Stable Bilateral Squats Resistance 150# Shuttle Recovery Platform Stable Shuttle Balance 1 Details Red - Wide DYAN, Staggered Stance Therapeutic Exercises Standing Exercises 3 Standing Exercise Name Up/Down/Retro stepping in // bars Side right Equipment Used 6 step 1 Standing Exercise Name TKE Side right Resistance Lv 3 Equipment Used T-band Other Exercises 2 Other Exercise Name Resisted Forward/Retro Ambulation Side bilateral Resistance Green Equipment Used T-band 1 Other Exercise Name Resisted Side-stepping Side bilateral Resistance Green Equipment Used T-band Manual Therapy Treatment Soft Tissue Mobilization 1 Body Location Scar region Mobilization Type Cross-Friction Intensity/Depth Superficial Body Position Supine Comments 10 minutes PT-OP-R Modalities Start: 01/09/18 16:06 Freq: Status: Active Protocol: Document 01/20/18 09:30 DCW (Rec: 01/20/18 10:17 DCW [id number]) Hot Pack/Cold Pack Treatment Cold Pack Location right knee Patient Position Supine Patient Tolerance Good PT-OP-T Assessment and Plan Start: 01/09/18 16:06 Freq: Status: Active Protocol: Document 01/20/18 09:30 DCW (Rec: 01/20/18 10:17 DCW [id number]) Physical Therapy Assessment Impairments Impairments Edema Gait Pain ROM Soft Tissue Mobility Strength Goals Four Impairment Mid joint increased circumferencial measurement by 1.5 R> L [facility] Goal (LTG) Patient will decrease knee circumference to less than 16 to improve ROM LTG Duration 4 wks Three Impairment LEFS score of 53/80 [facility] Goal (LTG) Patient will have LEFS score of at least 60 LTG Duration 4 wks Two Impairment Decreased strength: 3+/5 with right knee extension [facility] Goal (LTG) Patient will exhibit MMT on right knee extensor of at least 4/5 for functional mobility LTG Duration 4 wks One Impairment 8 degrees knee flexion deficits [facility] Goal (LTG) Patient will exhibits 0-125 deg active knee flexion for functional mobility/activity LTG Duration 4 wks Assessment Summary Assessment During today's treatment, pt pointed out a large bulge directly superior to his right patella. Pt reported it was pain-free, and palpation seemed to reveal it as a very defined pocket of edema. Pt instructed to keep an eye on it . Otherwise, pt continues to do very well.1 Physical Therapy Plan Frequency and Duration Frequency of Treatment 2x/Week Plan of Care Start Date 01/09/18 Plan of Care End Date 03/06/18 Therapeutic Interventions Therapeutic Interventions Balance Training Gait Training Home Exercise Program Joint Mobilizations Manual Therapy Patient/Caregiver Education Self-Care/Home Management Soft Tissue Mobilization Therapeutic Exercises Modalities Cold Pack/Ice Massage Ultrasound Next Visit Focus/Plan Next Note Type Treatment Note Next Visit Plan Cont with current plan.
--- NOTE | 2018-01-24 10:33 | PT.OTN ---
Current Diagnoses Unilateral primary osteoarthritis, right knee (01/24/18) Presence of right artificial knee joint (01/24/18) Presence of left artificial knee joint (01/24/18) Physical Therapy Treatment Note PT-OP-A Visit Information Start: 01/09/18 16:06 Freq: Status: Active Protocol: Document 01/24/18 09:45 DCW (Rec: 01/24/18 10:32 DCW [id number]) Out-Patient Physical Therapy Visit Information Visit Information Visit Type Treatment Note Visit Start Time 09:30 Visit Stop Time 10:45 Total Visit Minutes 45 Visit Number 5 Evaluation Information Evaluation Date 01/09/18 PT-OP-B Current Condition Start: 01/09/18 16:06 Freq: Status: Active Protocol: Document 01/09/18 17:01 EA (Rec: 01/09/18 17:37 EA [id number]) Current Condition History of Current Condition Onset Date S/P R TKA 12/22/17 Current Complaints C/O Right knee pain, weakness and limitation of motion History of Current Condition S/P R TKA 12/22/17 with no secondary healing. Future Testing and Treatments Planned Surgeons follow up 2 weeks from today's date. Treatment Goals Patient/Caregiver Goals Back to PLOF: Regular gym exercises and indep in ADL's without use of wlaking device. Prior Functional Status Baseline Function- ADL's Independent Baseline Function- Mobility Independent Baseline Function- Recreation/Hobbies Daily fitness exercises in the gym Current Functional Impairments (Reported) Functional Limitations- ADL's Indep with minimal difficulty Functional Limitations- Mobility/Gait Antalgic gait, minimal Functional Limitations- Recreation/ Unable to come back to regular Hobbies fitness activity PT-OP-C Subjective Start: 01/09/18 16:06 Freq: Status: Active Protocol: Document 01/24/18 09:45 DCW (Rec: 01/24/18 10:32 DCW [id number]) OP-PT Subjective Patient Comments Patient Comments Pt reports he is doing well, feels like his knee is getting stronger. PT-OP-G Mobility & Gait Start: 01/09/18 16:06 Freq: Status: Active Protocol: Document 01/09/18 17:01 EA (Rec: 01/09/18 17:37 EA [id number]) OP Gait Assessment Gait Gait Assistance Required: Independent Able to Maintain Weight Bearing Status Yes During Gait Gait Deviations General Gait Pattern Antalgic Factors Limiting Gait Function Factors Limiting Gait Function Decreased Strength Limited Range of Motion Pain Comments Gait Comments Mild antalgic Stair Climbing Evaluation Evaluation Level of Assist On Stairs Independent Devices Stair Climbing Assistive Devices None Technique/Endurance Stair Climbing Direction Ascend and Descend Stair Climbing Technique Step Over Step Comments Stair Climbing Comments slight difficulty during descent at 4' steps PT-OP-J Posture/Palpation/Skin Start: 01/09/18 16:06 Freq: Status: Active Protocol: Document 01/09/18 17:01 EA (Rec: 01/09/18 17:37 EA [id number]) Palpation Assessment Location One Palpation Location Right quads and hamstring, knee joint, scar tissue Palpation Findings Edema Tenderness PT-OP-K Range of Motion Start: 01/09/18 16:06 Freq: Status: Active Protocol: Document 01/09/18 17:01 EA (Rec: 01/09/18 17:37 EA [id number]) Knee Goniometric Range of Motion Knee Measured in Degrees Right Patient Position Supine Flexion Active (degrees) 117 Extension Active (degrees) 0 Left Patient Position Supine Flexion Active (degrees) 125 Extension Active (degrees) 0 Knee ROM Limitations Knee ROM Limitations Soft Tissue Tightness Swelling PT-OP-M Strength Start: 01/09/18 16:06 Freq: Status: Active Protocol: Document 01/09/18 17:01 EA (Rec: 01/09/18 17:37 EA [id number]) Knee Strength Knee Manual Muscle Testing Right Flexion (S2) 4- Good- Extension (L3) 3+ Fair+ Reason Not Measured Orthopedic Precautions Left Flexion (S2) 5 Normal Extension (L3) 5 Normal PT-OP-Q Treatments Start: 01/09/18 16:06 Freq: Status: Active Protocol: Document 01/24/18 09:45 DCW (Rec: 01/24/18 10:32 DCW [id number]) Cardio Equipment Recumbent Bicycle Duration (Minutes) 5 Resistance 4 Seat Position 3 Gym Equipment Shuttle Recovery Unilateral Squats Resistance 75# Shuttle Recovery Platform Stable Bilateral Squats Resistance 150# Shuttle Recovery Platform Stable Shuttle Balance 1 Details Red - Wide DYAN, Staggered Stance Therapeutic Exercises Supine Exercises 2 Supine Exercise Name SAQ Side right Resistance 10# Equipment Used Ankle weight 1 Supine Exercise Name SLR Side right Resistance 10# Equipment Used Ankle weight Standing Exercises 3 Standing Exercise Name Up/Down/Retro stepping in // bars Side right Equipment Used 6 step Other Exercises 2 Other Exercise Name Resisted Forward/Retro Ambulation Side bilateral Resistance Green Equipment Used T-band 1 Other Exercise Name Resisted Side-stepping Side bilateral Resistance Green Equipment Used T-band Manual Therapy Treatment Soft Tissue Mobilization 1 Body Location Scar region Mobilization Type Cross-Friction Intensity/Depth Superficial Body Position Supine Comments 10 minutes PT-OP-T Assessment and Plan Start: 01/09/18 16:06 Freq: Status: Active Protocol: Document 01/24/18 09:45 DCW (Rec: 01/24/18 10:32 DCW [id number]) Physical Therapy Assessment Impairments Impairments Edema Gait Pain ROM Soft Tissue Mobility Strength Goals Four Impairment Mid joint increased circumferencial measurement by 1.5 R> L [facility] Goal (LTG) Patient will decrease knee circumference to less than 16 to improve ROM LTG Duration 4 wks Three Impairment LEFS score of 53/80 [employer] Goal (LTG) Patient will have LEFS score of at least 60 LTG Duration 4 wks Two Impairment Decreased strength: 3+/5 with right knee extension [facility] Goal (LTG) Patient will exhibit MMT on right knee extensor of at least 4/5 for functional mobility LTG Duration 4 wks One Impairment 8 degrees knee flexion deficits [employer] Goal (LTG) Patient will exhibits 0-125 deg active knee flexion for functional mobility/activity LTG Duration 4 wks Assessment Summary Assessment Pt's pocket of edema directly above his patella continues to be present, but pt reports it causes him no problems or difficulty. Physical Therapy Plan Frequency and Duration Frequency of Treatment 2x/Week Plan of Care Start Date 01/09/18 Plan of Care End Date 03/06/18 Therapeutic Interventions Therapeutic Interventions Balance Training Gait Training Home Exercise Program Joint Mobilizations Manual Therapy Patient/Caregiver Education Self-Care/Home Management Soft Tissue Mobilization Therapeutic Exercises Modalities Cold Pack/Ice Massage Ultrasound Next Visit Focus/Plan Next Note Type Treatment Note Next Visit Plan Cont with current plan.
--- NOTE | 2018-01-27 10:10 | PT.OTN ---
Current Diagnoses Unilateral primary osteoarthritis, right knee (01/27/18) Presence of right artificial knee joint (01/27/18) Presence of left artificial knee joint (01/27/18) Physical Therapy Treatment Note PT-OP-A Visit Information Start: 01/09/18 16:06 Freq: Status: Active Protocol: Document 01/27/18 09:30 DCW (Rec: 01/27/18 10:10 DCW [id number]) Out-Patient Physical Therapy Visit Information Visit Information Visit Type Treatment Note Visit Start Time 09:30 Visit Stop Time 10:15 Total Visit Minutes 45 Visit Number 6 Evaluation Information Evaluation Date 01/09/18 PT-OP-B Current Condition Start: 01/09/18 16:06 Freq: Status: Active Protocol: Document 01/09/18 17:01 EA (Rec: 01/09/18 17:37 EA [id number]) Current Condition History of Current Condition Onset Date S/P R TKA 12/22/17 Current Complaints C/O Right knee pain, weakness and limitation of motion History of Current Condition S/P R TKA 12/22/17 with no secondary healing. Future Testing and Treatments Planned Surgeons follow up 2 weeks from today's date. Treatment Goals Patient/Caregiver Goals Back to PLOF: Regular gym exercises and indep in ADL's without use of wlaking device. Prior Functional Status Baseline Function- ADL's Independent Baseline Function- Mobility Independent Baseline Function- Recreation/Hobbies Daily fitness exercises in the gym Current Functional Impairments (Reported) Functional Limitations- ADL's Indep with minimal difficulty Functional Limitations- Mobility/Gait Antalgic gait, minimal Functional Limitations- Recreation/ Unable to come back to regular Hobbies fitness activity PT-OP-C Subjective Start: 01/09/18 16:06 Freq: Status: Active Protocol: Document 01/27/18 09:30 DCW (Rec: 01/27/18 10:10 DCW [id number]) OP-PT Subjective Patient Comments Patient Comments Pt reports he has not had any difficulty performing any activities, was doing some projects the other day and had to get down on his knees, noted that he decided it wasn' t a good idea, and was able to change positions, but he didn 't really have any problems with it. Does note that he hasn't felt comfortable getting onto his boat. PT-OP-G Mobility & Gait Start: 01/09/18 16:06 Freq: Status: Active Protocol: Document 01/09/18 17:01 EA (Rec: 01/09/18 17:37 EA [id number]) OP Gait Assessment Gait Gait Assistance Required: Independent Able to Maintain Weight Bearing Status Yes During Gait Gait Deviations General Gait Pattern Antalgic Factors Limiting Gait Function Factors Limiting Gait Function Decreased Strength Limited Range of Motion Pain Comments Gait Comments Mild antalgic Stair Climbing Evaluation Evaluation Level of Assist On Stairs Independent Devices Stair Climbing Assistive Devices None Technique/Endurance Stair Climbing Direction Ascend and Descend Stair Climbing Technique Step Over Step Comments Stair Climbing Comments slight difficulty during descent at 4' steps PT-OP-J Posture/Palpation/Skin Start: 01/09/18 16:06 Freq: Status: Active Protocol: Document 01/09/18 17:01 EA (Rec: 01/09/18 17:37 EA [id number]) Palpation Assessment Location One Palpation Location Right quads and hamstring, knee joint, scar tissue Palpation Findings Edema Tenderness PT-OP-K Range of Motion Start: 01/09/18 16:06 Freq: Status: Active Protocol: Document 01/09/18 17:01 EA (Rec: 01/09/18 17:37 EA [id number]) Knee Goniometric Range of Motion Knee Measured in Degrees Right Patient Position Supine Flexion Active (degrees) 117 Extension Active (degrees) 0 Left Patient Position Supine Flexion Active (degrees) 125 Extension Active (degrees) 0 Knee ROM Limitations Knee ROM Limitations Soft Tissue Tightness Swelling PT-OP-M Strength Start: 01/09/18 16:06 Freq: Status: Active Protocol: Document 01/09/18 17:01 EA (Rec: 01/09/18 17:37 EA [id number]) Knee Strength Knee Manual Muscle Testing Right Flexion (S2) 4- Good- Extension (L3) 3+ Fair+ Reason Not Measured Orthopedic Precautions Left Flexion (S2) 5 Normal Extension (L3) 5 Normal PT-OP-Q Treatments Start: 01/09/18 16:06 Freq: Status: Active Protocol: Document 01/27/18 09:30 DCW (Rec: 01/27/18 10:10 DCW [id number]) Cardio Equipment Recumbent Bicycle Duration (Minutes) 5 Resistance 4 Seat Position 3 Gym Equipment Shuttle Recovery Unilateral Squats Resistance 75# Shuttle Recovery Platform Stable Bilateral Squats Resistance 150# Shuttle Recovery Platform Stable Shuttle Balance 1 Details Red - Wide DYAN, Staggered Stance Therapeutic Exercises Other Exercises 2 Other Exercise Name Resisted Forward/Retro Ambulation Side bilateral Resistance Green Equipment Used T-band 1 Other Exercise Name Resisted Side-stepping Side bilateral Resistance Green Equipment Used T-band Manual Therapy Treatment Soft Tissue Mobilization 1 Body Location Scar region Mobilization Type Cross-Friction Intensity/Depth Superficial Body Position Supine Comments 10 minutes PT-OP-T Assessment and Plan Start: 01/09/18 16:06 Freq: Status: Active Protocol: Document 01/27/18 09:30 DCW (Rec: 01/27/18 10:10 DCW [id number]) Physical Therapy Assessment Impairments Impairments Edema Gait Pain ROM Soft Tissue Mobility Strength Goals Four Impairment Mid joint increased circumferencial measurement by 1.5 R> L Blasting Entryman Goal (LTG) Patient will decrease knee circumference to less than 16 to improve ROM LTG Duration 4 wks Three Impairment LEFS score of 53/80 Jail Goal (LTG) Patient will have LEFS score of at least 60 LTG Duration 4 wks Two Impairment Decreased strength: 3+/5 with right knee extension Jail Goal (LTG) Patient will exhibit MMT on right knee extensor of at least 4/5 for functional mobility LTG Duration 4 wks One Impairment 8 degrees knee flexion deficits Blasting Entryman Goal (LTG) Patient will exhibits 0-125 deg active knee flexion for functional mobility/activity LTG Duration 4 wks Assessment Summary Assessment Pt continues to do well, likely approaching discharge levels. Physical Therapy Plan Frequency and Duration Frequency of Treatment 2x/Week Plan of Care Start Date 01/09/18 Plan of Care End Date 03/06/18 Therapeutic Interventions Therapeutic Interventions Balance Training Gait Training Home Exercise Program Joint Mobilizations Manual Therapy Patient/Caregiver Education Self-Care/Home Management Soft Tissue Mobilization Therapeutic Exercises Modalities Cold Pack/Ice Massage Ultrasound Next Visit Focus/Plan Next Note Type Treatment Note Next Visit Plan Cont with current plan.
--- NOTE | 2018-04-03 17:17 | PT.OPDS ---
Current Diagnoses Unilateral primary osteoarthritis, right knee (01/27/18) Presence of right artificial knee joint (01/27/18) Presence of left artificial knee joint (01/27/18) Provider Visit Care Team Role Provider Type Avinash Bar MD Family Provider Physician Primary Care Provider Specialty: Family Practice Address: [address] [place] [address], [id number] Email: [email or web address] Dorothea Funes MD Attending Provider Physician Specialty: Orthopedic Surgery Address: [address] [place] [address], [id number] Email: [email or web address] Visit Number Visit Number 6 Discharge Summary PT-OP-B Current Condition Start: 01/09/18 16:06 Freq: Status: Active Protocol: Document 01/09/18 17:01 EA (Rec: 01/09/18 17:37 EA [id number]) Current Condition History of Current Condition Onset Date S/P R TKA 12/22/17 Current Complaints C/O Right knee pain, weakness and limitation of motion History of Current Condition S/P R TKA 12/22/17 with no secondary healing. Future Testing and Treatments Planned Surgeons follow up 2 weeks from today's date. Treatment Goals Patient/Caregiver Goals Back to PLOF: Regular gym exercises and indep in ADL's without use of wlaking device. Prior Functional Status Baseline Function- ADL's Independent Baseline Function- Mobility Independent Baseline Function- Recreation/Hobbies Daily fitness exercises in the gym Current Functional Impairments (Reported) Functional Limitations- ADL's Indep with minimal difficulty Functional Limitations- Mobility/Gait Antalgic gait, minimal Functional Limitations- Recreation/ Unable to come back to regular Hobbies fitness activity PT-OP-C Subjective Start: 01/09/18 16:06 Freq: Status: Active Protocol: Document 04/03/18 17:16 EA (Rec: 04/03/18 17:17 EA [id number]) OP-PT Subjective Patient Comments Patient Comments Patient has no scheduled PT appointment since last 01/27/18 . PT-OP-G Mobility & Gait Start: 01/09/18 16:06 Freq: Status: Active Protocol: Document 01/09/18 17:01 EA (Rec: 01/09/18 17:37 EA [id number]) OP Gait Assessment Gait Gait Assistance Required: Independent Able to Maintain Weight Bearing Status Yes During Gait Gait Deviations General Gait Pattern Antalgic Factors Limiting Gait Function Factors Limiting Gait Function Decreased Strength Limited Range of Motion Pain Comments Gait Comments Mild antalgic Stair Climbing Evaluation Evaluation Level of Assist On Stairs Independent Devices Stair Climbing Assistive Devices None Technique/Endurance Stair Climbing Direction Ascend and Descend Stair Climbing Technique Step Over Step Comments Stair Climbing Comments slight difficulty during descent at 4' steps PT-OP-J Posture/Palpation/Skin Start: 01/09/18 16:06 Freq: Status: Active Protocol: Document 01/09/18 17:01 EA (Rec: 01/09/18 17:37 EA [id number]) Palpation Assessment Location One Palpation Location Right quads and hamstring, knee joint, scar tissue Palpation Findings Edema Tenderness PT-OP-K Range of Motion Start: 01/09/18 16:06 Freq: Status: Active Protocol: Document 01/09/18 17:01 EA (Rec: 01/09/18 17:37 EA [id number]) Knee Goniometric Range of Motion Knee Measured in Degrees Right Patient Position Supine Flexion Active (degrees) 117 Extension Active (degrees) 0 Left Patient Position Supine Flexion Active (degrees) 125 Extension Active (degrees) 0 Knee ROM Limitations Knee ROM Limitations Soft Tissue Tightness Swelling PT-OP-M Strength Start: 01/09/18 16:06 Freq: Status: Active Protocol: Document 01/09/18 17:01 EA (Rec: 01/09/18 17:37 EA [id number]) Knee Strength Knee Manual Muscle Testing Right Flexion (S2) 4- Good- Extension (L3) 3+ Fair+ Reason Not Measured Orthopedic Precautions Left Flexion (S2) 5 Normal Extension (L3) 5 Normal PT-OP-T Assessment and Plan Start: 01/09/18 16:06 Freq: Status: Active Protocol: Document 04/03/18 17:13 EA (Rec: 04/03/18 17:16 EA [id number]) Physical Therapy Assessment Assessment Summary Assessment Discharge to PT as patient no longer attending appointments Physical Therapy Plan Discharge Physical Therapy Discharge Reasons No Longer Attending PT
== END 2018-04-11 12:19 ==
LOC: PHYS 09:45
PROVIDERS: Family Provider Family Medicine; PCP Family Medicine; Visit Provider Orthopaedic Surgery
DX: M17.11 Unilateral primary osteoarthritis, right knee (principal); Z96.651 Presence of right artificial knee joint; Z96.652 Presence of left artificial knee joint
CPT/HCPCS: 97010; 97110; 97112; 97140; 97162; 97535

== ENCOUNTER → 2018-02-21 14:00 | Outpatient (CLI) | payer OTHER, SELFPAY ==
[2017-12-22 16:06] VITALS: BMI 27.4
== END ==
PROVIDERS: Family Provider Family Medicine; PCP Family Medicine
DX: Z23 Encounter for immunization (principal)
CPT/HCPCS: 90471; 90662

== ENCOUNTER → 2019-03-06 15:21 | Outpatient (CLI) | payer OTHER, SELFPAY ==
[2017-12-22 16:06] VITALS: BMI 27.4
== END ==
PROVIDERS: Family Provider Family Medicine; PCP Student in an Organized Health Care Education/Training Program
DX: Z23 Encounter for immunization (principal)
CPT/HCPCS: 90471; 90662

== ENCOUNTER → 2019-07-13 11:02 | Outpatient (CLI) | payer OTHER, SELFPAY ==
[2017-12-22 16:06] VITALS: BMI 27.4
[2019-07-13 12:32] LABS: Hematocrit 40.1 % (41-53); Hemoglobin 13.6 g/dL (13.5-17.5)
[2019-07-13 13:33] LABS: Blood Urea Nitrogen 20 mg/dL (9-20); Estimated Glomerular Filt Rate > 60.0 mL/min (>60)
[2019-07-13 13:52] LABS: Prostate Specific Antigen Scrn 2.85 ng/mL (0.1-4.0)
== END ==
PROVIDERS: Family Provider Family Medicine; PCP Student in an Organized Health Care Education/Training Program; Visit Provider Student in an Organized Health Care Education/Training Program
DX: D64.9 Anemia, unspecified (principal); K51.90 Ulcerative colitis, unspecified, without complications; K51.919 Ulcerative colitis, unspecified with unspecified complications; Z79.899 Other long term (current) drug therapy; Z12.5 Encounter for screening for malignant neoplasm of prostate
CPT/HCPCS: 36415; 82565; 84520; 85014; 85018; G0103

== ENCOUNTER → 2022-03-15 15:23 | Outpatient (CLI) | payer OTHER, SELFPAY ==
[2017-12-22 16:06] VITALS: BMI 27.4
--- NOTE | 2022-03-15 15:24 | DI.RAD.S_ITS ---
PROCEDURE: XR SHOULDER RT MIN 2V INDICATIONS: Right shoulder pain TECHNIQUE: 3 views of the shoulder were acquired. COMPARISON: None. FINDINGS: Bones: No fractures or dislocations. No suspicious bony lesions. Moderate acromioclavicular and glenohumeral joint degeneration. Visualized ribs appear intact. Soft tissues: No suspicious soft tissue calcifications. IMPRESSION: Moderate degenerative joint disease. Dictated by: Basia Higgins M.D. on 03/15/2022 at 17:56 Approved by: Basia Higgins M.D. on 03/15/2022 at 17:57
[2022-03-15 15:57] LABS: Add Manual Diff / Slide Review NO; Basophils Absolute Auto 100 /uL (0-100); Eosinophils Absolute Auto 300 /uL (0-450); Eosinophils Percent Auto 4.4 % (2-4); Hemoglobin 13.2 g/dL (13.5-17.5); Lymphocytes Absolute Auto 2100 /uL (1100-4500); Lymphocytes Percent Auto 29.7 % (25-40); Mean Corpuscular HGB Conc 33.1 % (30-36); Mean Corpuscular Hemoglobin 29.7 PG (26-34); Mean Corpuscular Volume 89.7 fL (80-100); Monocytes Absolute Auto 500 /uL (0-900); Monocytes Percent Auto 7.5 % (3-14); Neutrophils Absolute Auto 4200 /uL (1500-7000); Neutrophils Percent Auto 57.4 % (50-75); Platelet Count 274 X10^3/uL (150-400); Red Blood Cell Count 4.46 X10^6/uL (4.5-5.9); Red Cell Distribution Width 14.5 % (11.6-14.8); White Blood Cell Count 7.2 X10^3/uL (4.5-11.0)
[2022-03-15 16:01] LABS: Prothrombin Time 10.9 SECONDS (10.1-12.7)
[2022-03-15 16:04] LABS: PTT Partial Thromboplastin Tim 40 SECONDS (26-36)
== END ==
PROVIDERS: Family Provider Family Medicine; PCP Student in an Organized Health Care Education/Training Program; Referring Provider Student in an Organized Health Care Education/Training Program; Visit Provider Student in an Organized Health Care Education/Training Program
DX: M25.511 Pain in right shoulder (principal); R23.3 Spontaneous ecchymoses; M19.011 Primary osteoarthritis, right shoulder
CPT/HCPCS: 36415; 73030; 85025; 85610; 85730

== ENCOUNTER → 2022-03-30 14:46 | Outpatient (CLI) | payer OTHER, SELFPAY ==
[2017-12-22 16:06] VITALS: BMI 27.4
--- NOTE | 2022-03-30 14:47 | DI.MRI.S_ITS ---
PROCEDURE: MR SHOULDER RT WO CON INDICATIONS: Chronic pain, easy bruising TECHNIQUE: Noncontrast oblique coronal T2 fast spin echo with fat saturation, oblique sagittal T1 spin echo and T2 fast spin echo with fat saturation, axial T1 spin echo and T2 fast spin echo with fat saturation through the shoulder. COMPARISON: [facility], CR, XR SHOULDER RT MIN 2V, 03/15/2022, 15:34. FINDINGS: Image quality: Excellent. Rotator cuff: There is complete tearing of the supraspinatus and infraspinatus tendons from their distal insertions with proximal tendon retraction measuring up to 4.8 cm. There is moderate atrophy of the supraspinatus and infraspinatus muscles as well as grade 2 fatty infiltration of the supraspinatus muscle and grade 3 fatty infiltration of the infraspinatus muscle. Mild teres minor tendinosis. High-grade partial articular sided tearing of the subscapularis tendon at the distal insertion. There is mild atrophy and grade 2 fatty infiltration of the superior subscapularis muscle. Bones and bursae: No acute trabecular bone injury or fracture. The humeral head is high riding and abuts the undersurface of the acromion with associated chronic degenerative changes including edema within the acromion. Moderate to severe degenerative changes are seen at the acromioclavicular joint with prominent marginal osteophyte formation. Multifocal cartilage irregularity is seen within the glenohumeral joint and there are marginal osteophytes present. A moderate glenohumeral joint effusion communicates with the subacromial/subdeltoid bursa. Capsule and soft tissues: Diffuse labral degeneration and chronic degenerative tearing. The proximal biceps long head tendon is completely torn and distally retracted. No definite glenohumeral ligament tear is seen. IMPRESSION: 1. 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 Moderate atrophy of the supraspinatus and infraspinatus muscles is seen with associated fatty infiltration. The humeral head is high riding and abuts the undersurface of the acromion with associated degenerative changes. 2. High-grade partial articular sided tearing of the subscapularis tendon at the distal insertion. There is mild atrophy and grade 2 fatty infiltration of the subscapularis muscle. 3. Complete tearing and distal retraction of the proximal biceps long head tendon. 4. Moderate degenerative changes at the glenohumeral joint with multifocal grade 2-3 chondromalacia. Chronic labral degeneration and degenerative tearing. 5. 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 6. Moderate glenohumeral joint effusion communicates with the subacromial/subdeltoid bursa. Approved by: Ben Velasco M.D. on 03/30/2022 at 20:00
== END ==
PROVIDERS: Family Provider Family Medicine; PCP Student in an Organized Health Care Education/Training Program; Referring Provider Student in an Organized Health Care Education/Training Program; Visit Provider Student in an Organized Health Care Education/Training Program
DX: M75.121 Complete rotator cuff tear or rupture of right shoulder, not specified as traumatic (principal); S46.111A Strain of muscle, fascia and tendon of long head of biceps, right arm, initial encounter; M19.011 Primary osteoarthritis, right shoulder; M94.211 Chondromalacia, right shoulder; M25.411 Effusion, right shoulder; S43.491A Other sprain of right shoulder joint, initial encounter; R23.3 Spontaneous ecchymoses; M25.511 Pain in right shoulder; G89.29 Other chronic pain
CPT/HCPCS: 73221

== ENCOUNTER 2022-05-22 08:47 | Emergency (ER) | payer OTHER, SELFPAY ==
[2017-12-22 16:06] VITALS: BMI 27.4
[2022-05-22 09:01] VITALS: BP 135/67; PULSE 98; RESP 20; TEMP 36.4; O2SAT 93; BMI 22.8
--- NOTE | 2022-05-22 09:01 | DI.CT.S_ITS ---
PROCEDURE: CT HEAD/BRAIN WO CON INDICATIONS: L sided numbness and stroke like sx TECHNIQUE: Noncontrast 4.5 mm thick angled axial sections acquired from the foramen magnum to the vertex, with coronal and sagittal reformats. For radiation dose reduction, the following was used: automated exposure control, adjustment of mA and/or kV according to patient size. COMPARISON: [facility], CT, HEAD WITHOUT CONTRAST, 02/21/2013, 14:51. FINDINGS: Image quality: Excellent. CSF spaces: Basal cisterns are patent. No extra-axial fluid collections. The ventricles are symmetric in size and shape. Brain: No intracranial bleeds or masses. There is cerebral volume loss for age, with resultant ventricular and sulcal prominence. There are periventricular and deep white matter chronic small vessel ischemic changes. There is intracranial internal carotid artery atherosclerosis. Skull and face: Calvarium and visualized facial bones appear intact, without suspicious lesions. Sinuses: Visualized sinuses and mastoids are clear. IMPRESSION: No acute intracranial abnormality. Dictated by: Vinny Okeefe M.D. on 05/22/2022 at 8:38 Approved by: Vinny Okeefe M.D. on 05/22/2022 at 8:38
--- NOTE | 2022-05-22 09:12 | PC.NURSE ---
went to bed last night around 2129, feeling normal. Patient woke this morning noticing some some tingling in left finger tips and left side of face. Reports improvement in his left side of his face but mild tingling in pointer and ring finger. Denies altered speech, denies headache.
[2022-05-22 09:16] VITALS: PULSE 71; O2SAT 94
--- NOTE | 2022-05-22 09:16 | ED_ITS ---
HPI - Neuro Symptoms/Deficit General Chief Complaint: Neuro Symptoms/Deficit Stated Complaint: lt arm numb along w lt side of face Time Seen by Provider: 05/22/22 09:01 Source: patient Mode of arrival: Ambulatory History of Present Illness HPI Narrative: 81-year-old male. No history of stroke. Not on blood thinners. Went to bed last night feeling fine. Woke up this morning and when he went to go take his dog for a walk he noticed that he was having some tingling was initially described his his left arm but was really isolated to fingers on his left hand. Was specifically the thumb and index finger and maybe the ring finger. He had no other symptoms in his hand. He then noticed that he was having some tingling around the left side of his mouth. His says there were no speech issues. He has no other associated symptoms. The tingling around his mouth is now gone and he feels that the tingling in his hand has greatly improved if not resolved itself. He states that they have been fighting with a thought was an influenza like illness for the past couple days. He has been having some cough that is also improving. On Anticoagulants: No Related Data Home Medications Medication Instructions Recorded Confirmed [FISH OIL] 1,000 mg PO BID ##0 02/26/11 03/15/22 Previous Rx's Medication Instructions Recorded aspirin 81 mg tablet,delayed 81 mg PO BID #0 tabs 12/23/17 release paroxetine HCl 40 mg tablet (Paxil) 40 mg PO DAILY #90 tabs 03/15/22 Allergies Allergy/AdvReac Type Severity Reaction Status Date / Time Sulfa (Sulfonamide AdvReac Intermediate FLU Verified 03/15/22 14:46 Antibiotics) SYMPTOMS/FEVER [SULFA (SULFONAMIDE ANTIBIOTICS)] Review of Systems Review of Systems ROS Unobtainable: All systems reviewed & are unremarkable except as noted in HPI and below Hematologic/Lymphatic On Anticoagulants: No Patient History Medical History Depression (12/05/15) Direct inguinal hernia of right side Primary osteoarthritis of both knees (10/04/17) Pure hypercholesterolemia (01/31/17) Ulcerative colitis with complication (12/05/15) Surgical History (Updated 06/22/20 @ 08:55 by Carlito Martin MD) History of bilateral knee arthroplasty (2004) History of colonoscopy (04/17/08) 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) History of tonsillectomy History of vasectomy Family History (Updated 02/13/15 @ 00:00 by JATINDER Wetzel) Mother Age: 98 Colitis Heart disease Social History household members: spouse Smoking Status: Former smoker alcohol intake: never Smoking Status: Former smoker Substance Use Type: marijuana Exam Initial Vital Signs Initial Vital Signs: Vital Signs Temperature 97.6 F 05/22/22 09:01 Pulse Rate 98 H 05/22/22 09:01 Respiratory Rate 20 05/22/22 09:01 Blood Pressure 135/67 05/22/22 09:01 Pulse Oximetry 93 05/22/22 09:01 Oxygen Delivery Method 05/22/22 09:01 HENMT Head: normal to inspection and normocephalic Eyes General: Yes appearance normal, both eyes and all related structures Resp Effort & Inspection: normal respiratory effort Auscultation: clear to auscultation bilaterally Cardio Rate: regular rate Rhythm: regular rhythm GI Inspection: normal to inspection Skin General: no rashes or lesions noted Neuro General: patient alert, patient awake, patient oriented x3 and moves all extremities Cranial Nerves: CN's II-XI intact bilaterally Cognition: normal cognition Speech: speech normal Gait: normal gait Motor: muscle tone normal throughout Coordination: [id number] test normal and [id number] test normal Extrem General: normal to inspection and capillary refill normal Scores ABCD2 Age >= 60 years: yes Initial BP. Either SBP >= 140 or DBP >= 90.: no Clinical features of the TIA: other symptoms Duration of symptoms: >= 60 minutes History of diabetes: no ABCD2 Score: 3 GCS [place] coma scale eye opening: Spontaneous [place]lin coma scale verbal response: Orientated [place] coma scale motor response: Obey commands [place] coma scale total score: 15 NIH Stroke Scale Level of Conciousness: Alert, keenly responsive Ask month/age: Answers both questions correctly. Open/close eyes, close hand: Performs both tasks correctly Best gaze horizontal: Normal Visual boudreaux: No visual loss Facial palsy: Normal symetrical movement Left arm drift: No drift for full 10 sec Right arm drift: No drift for full 10 sec Left leg drift: No drift for full 5 sec Right leg drift: No drift for full 5 sec Limb ataxia: Absent Sensory on face/arms/legs: Mild to moderate sensory loss, can tell touch Best language: No aphasia, normal Dysarthria: Normal Extinction or inattention: No abnormality Total NIH Stroke scale score: 1 Course Orders Ordered: ED Orders 05/22/22 08:55 COVID19 -Nasal RAPID/Pre-Proc Stat 05/22/22 09:00 Complete Blood Count AUTO DIFF Stat Comprehensive Metabolic Panel Stat Ethanol (ETOH) Stat Lipase Stat Magnesium Stat Partial Thromboplastin Time Stat Prothrombin Time INR Stat Troponin & CK Cardiac Panel Stat 05/22/22 09:01 CT head/brain wo con Stat 05/22/22 09:03 EKG-12 Lead Stat Vital Signs Vital signs: Vital Signs - 8 hr 05/22/22 09:01 05/22/22 09:16 05/22/22 09:30 Temperature 97.6 F Pulse Rate 98 H 71 Respiratory Rate 20 Blood Pressure 135/67 127/74 Pulse Oximetry 93 94 Oxygen Delivery Method Room Air 05/22/22 09:30 05/22/22 10:00 Temperature Pulse Rate 80 76 Respiratory Rate 32 H 28 H Blood Pressure Pulse Oximetry 95 Oxygen Delivery Method MDM - Neuro Symptoms/Deficit Lab Data Attestation: I reviewed the patient's lab results. Result diagrams: 05/22/22 09:00 05/22/22 09:00 Labs: Lab Results 05/22/22 05/22/22 05/22/22 Range/Units 08:55 09:00 09:00 WBC 9.6 (4.5-11.0) X10^3/uL RBC 4.55 (4.5-5.9) X10^6/uL Hgb 13.7 (13.5-17.5) g/dL Hct 39.8 L (41-53) % MCV 87.5 (80-100) fL MCH 30.0 (26-34) PG MCHC 34.3 (30-36) % RDW 13.8 (11.6-14.8) % Plt Count 284 (150-400) X10^3/uL Neut % (Auto) 76.0 H (50-75) % Lymph % (Auto) 13.4 L (25-40) % [place] % (Auto) 9.3 (3-14) % Eos % (Auto) 0.8 L (2-4) % Baso % (Auto) 0.5 (0-2) % Neut # (Auto) 7300 H (7250-2961) /uL Lymph # (Auto) 1300 (7199-9985) /uL [place] # (Auto) 900 (0-900) /uL Eos # (Auto) 100 (0-450) /uL Baso # (Auto) 0 (0-100) /uL PT (10.1-12.7) SECONDS INR (0.9-1.3) APTT 45 H (26-36) SECONDS Sodium (137-145) mmol/L Potassium (3.4-5.1) mmol/L Chloride (98-107) mmol/L Carbon Dioxide (22-32) mmol/L BUN (9-20) mg/dL Creatinine (0.66-1.25) mg/dL Estimated GFR (>60) mL/min BUN/Creatinine Ratio (6-22) Glucose (80-110) mg/dL Calcium (8.4-10.2) mg/dL Magnesium (1.6-2.3) mg/dL Total Bilirubin (0.2-1.3) mg/dL AST (17-59) IU/L ALT (<50) IU/L Alkaline Phosphatase (38-126) U/L Total Creatine Kinase (55-170) U/L CK-MB (CK-2) CK-MB (CK-2) Rel Index Troponin I (0.01-0.034) ng/mL Total Protein (6.3-8.2) g/dL Albumin (3.5-5.0) g/dL Globulin (1.7-4.1) g/dL Albumin/Globulin Ratio (1.0-2.8) Lipase (23-300) U/L Ethyl Alcohol ( - 10) mg/dL SARS-CoV-2 (PCR) Negative (Negative) 05/22/22 05/22/22 05/22/22 Range/Units 09:00 09:00 09:00 WBC (4.5-11.0) X10^3/uL RBC (4.5-5.9) X10^6/uL Hgb (13.5-17.5) g/dL Hct (41-53) % MCV (80-100) fL MCH (26-34) PG MCHC (30-36) % RDW (11.6-14.8) % Plt Count (150-400) X10^3/uL Neut % (Auto) (50-75) % Lymph % (Auto) (25-40) % [place] % (Auto) (3-14) % Eos % (Auto) (2-4) % Baso % (Auto) (0-2) % Neut # (Auto) (1257-5261) /uL Lymph # (Auto) (2969-7795) /uL [place] # (Auto) (0-900) /uL Eos # (Auto) (0-450) /uL Baso # (Auto) (0-100) /uL PT 12.3 (10.1-12.7) SECONDS INR 1.1 (0.9-1.3) APTT (26-36) SECONDS Sodium 140 (137-145) mmol/L Potassium 3.9 (3.4-5.1) mmol/L Chloride 101 (98-107) mmol/L Carbon Dioxide 26 (22-32) mmol/L BUN 16 (9-20) mg/dL Creatinine 0.57 L (0.66-1.25) mg/dL Estimated GFR > 60 (>60) mL/min BUN/Creatinine Ratio 28.1 H (6-22) Glucose 107 (80-110) mg/dL Calcium 9.2 (8.4-10.2) mg/dL Magnesium 2.0 (1.6-2.3) mg/dL Total Bilirubin 0.7 (0.2-1.3) mg/dL AST 39 (17-59) IU/L ALT 32 (<50) IU/L Alkaline Phosphatase 123 (38-126) U/L Total Creatine Kinase 91 (55-170) U/L CK-MB (CK-2) TNP CK-MB (CK-2) Rel Index TNP Troponin I < 0.012 (0.01-0.034) ng/mL Total Protein 8.5 H (6.3-8.2) g/dL Albumin 4.3 (3.5-5.0) g/dL Globulin 4.2 H (1.7-4.1) g/dL Albumin/Globulin Ratio 1.0 (1.0-2.8) Lipase 66 (23-300) U/L Ethyl Alcohol < 10 ( - 10) mg/dL SARS-CoV-2 (PCR) (Negative) Imaging Data CT scan - head: Radiologist's Impression: [address] [address] [address] Scan Report Signed Patient: Horacio Jones MR#: [id number] : 1940 Acct:[id number] Age/Sex: 81 / M Date of Service: 05/22/22 Loc: ED Accession Number: [id number] ?? Procedure: CT head/brain wo con Ordering Provider: Larry Guillen D.O. PROCEDURE:? CT HEAD/BRAIN WO CON ? INDICATIONS:? L sided numbness and stroke like sx ? TECHNIQUE:? Noncontrast 4.5 mm thick angled axial sections acquired from the foramen magnum to the vertex, with coronal and sagittal reformats.? For radiation dose reduction, the following was used:? automated exposure control, adjustment of mA and/or kV according to patient size.? ? COMPARISON:? , CT, HEAD WITHOUT CONTRAST, 02/21/2013, 14:51. ? FINDINGS:? Image quality:? Excellent.? ? CSF spaces:? Basal cisterns are patent.? No extra-axial fluid collections.? The ventricles are symmetric in size and shape.? ? Brain:? No intracranial bleeds or masses.? There is cerebral volume loss for age, with resultant ventricular and sulcal prominence.? There are periventricular and deep white matter chronic small vessel ischemic changes.? There is intracranial internal carotid artery atherosclerosis.? ? Skull and face:? Calvarium and visualized facial bones appear intact, without suspicious lesions.? ? Sinuses:? Visualized sinuses and mastoids are clear.? ? IMPRESSION:? No acute intracranial abnormality. ? ? Dictated by: Vinny Okeefe M.D. on 05/22/2022 at 8:38 ? ? Approved by: Vinny Okeefe M.D. on 05/22/2022 at 8:38 ECG Data Attestation: I personally reviewed and interpreted this ECG as follows: Interpretation: Sinus rhythm Ventricular rate is 63 Left axis deviation QRS 110 milliseconds Normal QTC No ST T wave changes MDM Narrative Medical decision making narrative: NIH scale is 1 however the positive was because he reported a subjective d ecrease in sensation to his left index finger and potentially the ring finger. The rest of his sensory exam was unremarkable. His NIH score very well could have been a 0 as well. Workup here in the emergency department is unremarkable. He actually states that his symptoms have greatly improved if not resolved from the onset. He is had no vision changes or no speech issues or no balance issues . Head CT is negative. EKG is unremarkable. Has a ABCD2 score of 3. Not 100% convinced that this was TIA given his presentation however will have the patient increase his aspirin to a full aspirin every day and on Tuesday contact his primary doctor for a follow-up. He was given return precautions. He expressed understanding and agreement. Discharge Plan Departure Patient Disposition: Home Clinical Impression: Transient cerebral ischemia Instructions: DI for Transient Ischemic Attack Activity Restrictions/Additional Instructions: Recommend that you increase your aspirin from a baby aspirin every day to a full dose (325 mg) aspirin on a daily basis. A Tuesday contact your primary doctor for a follow-up to discuss the indications for further workup of your symptoms today. Return to the emergency department for any new or worsening symptoms. Prescriptions: No Action [FISH OIL] 1,000 mg PO BID Qty: 0 paroxetine HCl [Paxil] 40 mg tablet 40 mg PO DAILY Qty: 90 3RF aspirin 81 MG tablet,delayed release (DR/EC) 81 mg PO BID Qty: 0 0RF Referrals: Carlito Martin MD [Primary Care Provider] -
[2022-05-22 09:18] LABS: Add Manual Diff / Slide Review NO; Basophils Absolute Auto 0 /uL (0-100); Basophils Percent Auto 0.5 % (0-2); Eosinophils Absolute Auto 100 /uL (0-450); Eosinophils Percent Auto 0.8 % (2-4); Hematocrit 39.8 % (41-53); Hemoglobin 13.7 g/dL (13.5-17.5); Lymphocytes Absolute Auto 1300 /uL (1100-4500); Lymphocytes Percent Auto 13.4 % (25-40); Mean Corpuscular HGB Conc 34.3 % (30-36); Mean Corpuscular Volume 87.5 fL (80-100); Monocytes Absolute Auto 900 /uL (0-900); Monocytes Percent Auto 9.3 % (3-14); Neutrophils Absolute Auto 7300 /uL (1500-7000); Platelet Count 284 X10^3/uL (150-400); Red Blood Cell Count 4.55 X10^6/uL (4.5-5.9); Red Cell Distribution Width 13.8 % (11.6-14.8); White Blood Cell Count 9.6 X10^3/uL (4.5-11.0)
[2022-05-22 09:19] LABS: INR 1.1 (0.9-1.3); Prothrombin Time 12.3 SECONDS (10.1-12.7)
[2022-05-22 09:28] LABS: Alanine Aminotransferase 32 IU/L (<50); Albumin 4.3 g/dL (3.5-5.0); Alkaline Phosphatase 123 U/L (38-126); Aspartate Aminotransferase 39 IU/L (17-59); BUN Creatinine Ratio 28.1 (6-22); Bilirubin Total 0.7 mg/dL (0.2-1.3); Blood Urea Nitrogen 16 mg/dL (9-20); Calcium 9.2 mg/dL (8.4-10.2); Carbon Dioxide 26 mmol/L (22-32); Chloride 101 mmol/L (98-107); Creatine Kinase 91 U/L (55-170); Estimated Glomerular Filt Rate > 60 mL/min (>60); Ethanol (ETOH) < 10 mg/dL; Globulin 4.2 g/dL (1.7-4.1); Glucose 107 mg/dL (80-110); HEMOLYSIS 23 (0-50); Lipase 66 U/L (23-300); Potassium 3.9 mmol/L (3.4-5.1); Sodium 140 mmol/L (137-145); Total Protein 8.5 g/dL (6.3-8.2)
[2022-05-22 09:29] LABS: PTT Partial Thromboplastin Tim 45 SECONDS (26-36)
[2022-05-22 09:30] VITALS: BP 127/74; PULSE 80; RESP 32
[2022-05-22 09:37] LABS: COVID19 -Nasal RAPID Negative (Negative)
[2022-05-22 09:39] LABS: Troponin I < 0.012 ng/mL (0.01-0.034)
[2022-05-22 10:00] VITALS: PULSE 76; RESP 28; O2SAT 95
[2022-05-22 10:30] VITALS: BP 120/76; PULSE 72; RESP 18; O2SAT 95
[2022-05-22 11:00] VITALS: BP 126/71; PULSE 66; RESP 24; O2SAT 95
== END 2022-05-22 11:12 | disposition home or self-care (01) ==
PROVIDERS: Emergency Provider Emergency Medicine; Family Provider Family Medicine; PCP Student in an Organized Health Care Education/Training Program
DX: G45.9 Transient cerebral ischemic attack, unspecified (principal); R05.9 Cough, unspecified; Z79.82 Long term (current) use of aspirin; Z20.822 Contact with and (suspected) exposure to COVID-19
CPT/HCPCS: 36415; 70450; 80053; 80320; 82550; 83690; 83735; 84484; 85025; 85610; 85730; 87635; 93005; 99284; C9803

== ENCOUNTER 2023-07-18 13:34 | Emergency (ER) | payer OTHER, SELFPAY ==
[2017-12-22 16:06] VITALS: BMI 27.4
[2023-07-18 13:45] VITALS: BP 123/73; PULSE 68; RESP 18; TEMP 36.9; O2SAT 94; BMI 22.8
--- NOTE | 2023-07-18 15:43 | DI.RAD.S_ITS ---
PROCEDURE: XR FOOT LT MIN 3V INDICATIONS: fall TECHNIQUE: 3 views of the foot were acquired. COMPARISON: None. FINDINGS: Bones: No fractures or dislocations. Hallux valgus and bunion and 1st MTP degenerative change. There is a severe arthritic process involving the midfoot, spanning from the 2nd through 5th tarsometatarsal joints. Findings include joint space widening and loss of cortex subjacent to the joint. Cannot exclude septic midfoot arthritis. Soft tissues: No tibiotalar joint effusion. Achilles tendon appears normal. IMPRESSION: 1. No acute fracture or dislocation. 2. 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 Cannot exclude septic midfoot arthritis. 3. Hallux valgus, bunion. Comment: Consider further evaluation with nonemergent foot MRI with and without contrast. Dictated by: Arnaud Quach M.D. on 07/18/2023 at 17:06 Approved by: Arnaud Quach M.D. on 07/18/2023 at 17:08
--- NOTE | 2023-07-18 15:43 | DI.RAD.S_ITS ---
PROCEDURE: XR ANKLE LT MIN 3V INDICATIONS: fall TECHNIQUE: 3 views of the ankle were acquired. COMPARISON: [facility], CR, XR FOOT LT MIN 3V, 07/18/2023, 16:29. [facility], CR, XR TIBIA FIBULA LT 2V, 07/18/2023, 16:29. FINDINGS: Bones: No fractures or dislocations. Ankle mortise is normally aligned. No suspicious bony lesions. Severe arthritic change in the midfoot incidentally noted. Soft tissues: No tibiotalar joint effusion. Achilles tendon appears normal. IMPRESSION: No evidence acute bony abnormality. If clinical suspicion and/or symptoms persist, further assessment with repeat plain films, or advanced imaging (e.g., CT, MRI, or bone scan) may be helpful for further assessment. Dictated by: Arnaud Quach M.D. on 07/18/2023 at 17:01 Approved by: Arnaud Quach M.D. on 07/18/2023 at 17:05
--- NOTE | 2023-07-18 15:43 | DI.RAD.S_ITS ---
PROCEDURE: XR TIBIA FIBULA LT 2V INDICATIONS: fall TECHNIQUE: 2 views of the tibia and fibula were acquired. COMPARISON: None. FINDINGS: Bones: Expected appearance of total left knee arthroplasty. No evidence of hardware failure or loosening. No fractures or dislocations. No suspicious bony lesions. Soft tissues: No suspicious soft tissue calcifications or masses. IMPRESSION: No acute bony abnormality. Dictated by: Arnaud Quach M.D. on 07/18/2023 at 17:12 Approved by: Arnaud Quach M.D. on 07/18/2023 at 17:17
--- NOTE | 2023-07-18 15:45 | DI.US.S_ITS ---
PROCEDURE: US PERIPH VENOUS LOW EXTREM LT INDICATIONS: calf pain TECHNIQUE: Real-time imaging, as well as color and pulse Doppler interrogation, were performed of the lower extremity deep veins from the inguinal ligament to the popliteal fossa, with documentation of the visualized calf veins. COMPARISON: None. FINDINGS: The common femoral, femoral, popliteal, and the visualized calf veins are normally compressible, and free of intraluminal thrombus. Color and pulse Doppler demonstrate normal phasic intraluminal flow. There is normal augmentation response to distal compression maneuver. Within the proximal calf, there is a 10.6 x 1.7 x 2.5 cm nonvascular irregular hypoechoic collection. IMPRESSION: No findings of lower extremity deep venous thrombosis. Likely calf hematoma seen. Dictated by: Dontrell Castro M.D. on 07/18/2023 at 15:39 Approved by: Dontrell Castro M.D. on 07/18/2023 at 15:40
--- NOTE | 2023-07-18 15:46 | ED.LOWEXIN ---
HPI - Extremity Injury (Lower) <Marisol Whitehead PA-C - Last Filed: 07/18/23 17:56> General Chief Complaint: Extremity Injury, Lower Stated Complaint: fall, leg and foot swelling Time Seen by Provider: 07/18/23 14:05 Source: patient and family Mode of arrival: Ambulatory History of Present Illness HPI Narrative: 82-year-old male with past medical history osteoarthritis, depression presents to the ED with left lower leg and calf pain since July 06. Patient states that he was in [facility] when he fell in the parking lot at [facility], was a mechanical fall. Patient had an ultrasound done right after the fall, no DVTs noted, but they told him that his Achilles might be torn. Patient and patient's just returned on a flight back today from [facility], saw that his left lower leg was more swollen and painful than before. Patient is not on blood thinners. Patient denies fever, chills, chest pain, shortness of breath, numbness, tingling, weakness. Related Data Home Medications Medication Instructions Recorded Confirmed [FISH OIL] 1,000 mg PO BID ##0 02/26/11 05/30/23 aspirin 81 mg tablet,delayed 81 mg PO DAILY 07/09/22 05/30/23 release Previous Rx's Medication Instructions Recorded paroxetine HCl 40 mg tablet (Paxil) 40 mg PO DAILY #90 tabs 02/21/23 Allergies Allergy/AdvReac Type Severity Reaction Status Date / Time Sulfa (Sulfonamide AdvReac Intermediate FLU Verified 05/30/23 08:44 Antibiotics) SYMPTOMS/FEVER [SULFA (SULFONAMIDE ANTIBIOTICS)] Review of Systems <Marisol Whitehead PA-C - Last Filed: 07/18/23 17:56> Review of Systems ROS Unobtainable: All systems reviewed & are unremarkable except as noted in HPI and below Constitutional Constitutional: Denies chills, Denies fatigue, Denies fever(s), Denies frequent falls, Denies lethargy and Denies weakness Eyes Eyes: Denies change in vision, Denies eye discharge, Denies irritation and Denies loss of vision ENT Ears, Nose, Mouth, and Throat: Denies change in voice, Denies dizziness, Denies neck pain, Denies sore throat and Denies throat swelling Cardiovascular Cardiovascular: Denies chest pain, Denies irregular heart rhythm, Denies lightheadedness, Denies palpitations, Denies dyspnea, Denies dyspnea on exertion and Denies orthopnea Respiratory Respiratory: Denies cough, Denies dyspnea, Denies dyspnea on exertion and Denies wheezing Gastrointestinal Gastrointestinal: Denies abdominal pain, Denies change in bowel habits, Denies diarrhea, Denies nausea and Denies vomiting Musculoskeletal Musculoskeletal: Denies neck pain and Denies numbness Integumentary/Breasts Skin/Breast: Denies pruritus, Denies erythema, Denies rash and Denies wounds Neurologic Neurologic: Denies behavioral changes, Denies confusion, Denies dizziness, Denies frequent falls, Denies loss of vision, Denies numbness and Denies weakness Psychiatric Psychiatric: Denies anxiety, Denies behavioral changes, Denies confusion, Denies depression, Denies homicidal ideation and Denies suicidal ideation Endocrine Endocrine: Denies fatigue, Denies flushing and Denies palpitations Hematologic/Lymphatic Hematologic/Lymphatic: Denies easy bruising Allergic/Immunologic Allergic/Immunologic: Denies urticaria, Denies throat swelling and Denies wheezing Patient History <Marisol Whitehead PA-C - Last Filed: 07/18/23 17:56> Medical History Direct inguinal hernia of right side Primary osteoarthritis of both knees (10/04/17) Pure hypercholesterolemia (01/31/17) Ulcerative colitis with complication (12/05/15) Depression (12/05/15) Surgical History 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) 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 of colonoscopy (04/17/08) History of tonsillectomy History of vasectomy History of bilateral knee arthroplasty (2004) Family History Mother Age: 99 Colitis Heart disease Social History household members: spouse Smoking Status: Former smoker alcohol intake: never Smoking Status: Former smoker Substance Use Type: marijuana Exam <Marisol Whitehead PA-C - Last Filed: 07/18/23 17:56> Narrative Exam Narrative: Const General:?cooperative, healthy appearing and comfortable [facility] Head:?normal to inspection Ears:?hearing grossly normal bilaterally Nose:?external nose normal Face and sinus:?normal facial exam and sinuses nontender Mouth:?oral mucosae normal Throat:?posterior oropharynx normal Eyes General:?appearance normal, both eyes and all related structures Neck Neck:?normal visual inspection and no lymphadenopathy noted Resp Effort & Inspection:?normal respiratory effort Auscultation:?clear to auscultation bilaterally Cardio Rate:?regular rate Rhythm:?regular rhythm Musculoskeletal There is some mild swelling of the left ankle and foot. There is tenderness to palpation of the left calf, ankle, foot. No erythema, bruising. There is full range of motion. Patient is neurovascularly intact. Neuro General:?patient alert, patient awake and patient oriented x3 Initial Vital Signs Initial Vital Signs: Vital Signs Temperature 98.4 F 07/18/23 13:45 Pulse Rate 68 07/18/23 13:45 Respiratory Rate 18 07/18/23 13:45 Blood Pressure 123/73 07/18/23 13:45 Pulse Oximetry 94 07/18/23 13:45 Oxygen Delivery Method Room Air 07/18/23 13:45 <DO Robinson Sousa Last Filed: 07/18/23 19:59> Initial Vital Signs Initial Vital Signs: Vital Signs Temperature 98.4 F 07/18/23 13:45 Pulse Rate 68 07/18/23 13:45 Respiratory Rate 18 07/18/23 13:45 Blood Pressure 123/73 07/18/23 13:45 Pulse Oximetry 94 07/18/23 13:45 Oxygen Delivery Method Room Air 07/18/23 13:45 Course <Marisol Whitehead PA-C - Last Filed: 07/18/23 17:56> Orders Ordered: ED Orders 07/18/23 15:43 XR ankle LT min 3V Stat XR foot LT min 3V Stat XR tibia fibula LT 2V Stat 07/18/23 15:45 US periph venous low extrem lt Stat Vital Signs Vital signs: Vital Signs - 8 hr 07/18/23 13:45 07/18/23 17:39 Temperature 98.4 F Pulse Rate 68 81 Respiratory Rate 18 18 Blood Pressure 123/73 136/72 Pulse Oximetry 94 96 Oxygen Delivery Method Room Air Room Air <DO Robinson Sousa Last Filed: 07/18/23 19:59> Orders Ordered: ED Orders 07/18/23 15:43 XR ankle LT min 3V Stat XR foot LT min 3V Stat XR tibia fibula LT 2V Stat 07/18/23 15:45 US periph venous low extrem lt Stat Vital Signs Vital signs: Vital Signs - 8 hr 07/18/23 13:45 07/18/23 17:39 Temperature 98.4 F Pulse Rate 68 81 Respiratory Rate 18 18 Blood Pressure 123/73 136/72 Pulse Oximetry 94 96 Oxygen Delivery Method Room Air Room Air MDM - Extremity Injury (Lower) <Marisol Whitehead PA-C - Last Filed: 07/18/23 17:56> MDM Narrative Medical decision making narrative: 82-year-old male with past medical history osteoarthritis, depression presents to the ED with left lower leg and calf pain since July 06. Concern for fracture/dislocation versus musculoskeletal sprain/strain versus DVT versus other. Will obtain x-rays, ultrasound left lower extremity. Will re-evaluate. Have also requested ultrasound study from [place]. Received records from [place], ultrasound results which show no deep vein thrombosis of the left lower extremity. They do notes probable partial tear of the Achilles tendon with surrounding erythema. X-rays without signs of fracture or dislocations. Foot x-ray notes severe arthritic changes in the midfoot and possible septic midfoot arthritis. However, patient's symptoms do not clinically correlate with septic arthritis. Patient's gait is normal and he does not complain of foot pain. Ultrasound today shows no findings of DVTs. There is a likely calf hematoma measuring 10.6 x 1.7 x 2.5 cm. Compartments are soft. Neurovascularly intact. Discussed findings with patient. Recommend RICE to treat hematoma. Recommend monitoring. Recommend follow-up with PCP as soon as possible. ED return precautions were discussed with patient. Patient verbalized understanding. Medical records reviewed: Yes Discharge Plan Departure Patient Disposition: Home Clinical Impression: Left leg pain Instructions: DI for Leg Pain Activity Restrictions/Additional Instructions: You were evaluated in the ED today for left-sided leg pain. Your x-rays did not show any fractures or dislocations. The ultrasound did show a hematoma which is a blood clot which can occur due to a muscular injury. The treatment for this is rest, ice, Richard wraps, elevation. You may take ibuprofen or Tylenol for aches and pains. Please follow-up with your PCP as soon as possible. Return to the ED if you have worsening symptoms, the calf feels tight, you experience numbness, tingling, weakness. Prescriptions: No Action [FISH OIL] 1,000 mg PO BID Qty: 0 paroxetine HCl [Paxil] 40 mg tablet 40 mg PO DAILY Qty: 90 1RF Rx Instructions: PATIENT DUE FOR APPT IN THE NEW YEAR. PLEASE CALL NOW TO SCHEDULE/SET UP NEW PCP APPT. THANKS 02/21/23. aspirin 81 mg tablet,delayed release (DR/EC) 81 mg PO DAILY Referrals: Emilee Pisano DO [Primary Care Provider] - Stand Alone Forms: Patient Portal/API ED Sign-out <Viki Wyatt DO - Last Filed: 07/18/23 19:59> Cosign ED Attending Jazmyn Attestation: I was immediately available in the department for consultation.
[2023-07-18 17:39] VITALS: BP 136/72; PULSE 81; RESP 18; O2SAT 96
== END 2023-07-18 17:42 | disposition home or self-care (01) ==
PROVIDERS: Emergency Provider Student in an Organized Health Care Education/Training Program; Family Provider Family Medicine; PCP Family Medicine
DX: M79.605 Pain in left leg (principal); W18.30XA Fall on same level, unspecified, initial encounter
CPT/HCPCS: 73590; 73610; 73630; 93971; 99283

== ENCOUNTER → 2024-06-08 12:24 | Outpatient (CLI) | payer OTHER, SELFPAY ==
[2017-12-22 16:06] VITALS: BMI 27.4
--- NOTE | 2024-06-08 12:27 | DI.RAD.S_ITS ---
PROCEDURE: XR HIP W PEL IF DONE LT 2V INDICATIONS: r/o fx, groin pain s/p fall TECHNIQUE: AP pelvis with lateral view(s) of the left hip(s). COMPARISON: None. FINDINGS: Diffuse osseous demineralization. Ill-defined sclerosis at the medial left transcervical femoral neck. No significant displacement. No other fracture or dislocation. Mild right hip osteoarthritis. Mild bilateral sacroiliac osteoarthritis. Moderate lower lumbar osteoarthrosis. IMPRESSION: Possible minimally displaced left medial transcervical femoral fracture. CT of the left hip without contrast recommended for confirmation. Dictated by: Deon Vera M.D. on 06/08/2024 at 13:25 Approved by: Deon Vera M.D. on 06/08/2024 at 13:28
== END ==
PROVIDERS: Family Provider Family Medicine; PCP Family Medicine; Referring Provider Nurse Practitioner Family; Visit Provider Nurse Practitioner Family
DX: S39.013A Strain of muscle, fascia and tendon of pelvis, initial encounter (principal); M47.898 Other spondylosis, sacral and sacrococcygeal region; M47.816 Spondylosis without myelopathy or radiculopathy, lumbar region; W19.XXXA Unspecified fall, initial encounter
CPT/HCPCS: 73502

== ENCOUNTER → 2024-06-15 07:54 | Outpatient (CLI) | payer OTHER, SELFPAY ==
[2017-12-22 16:06] VITALS: BMI 27.4
--- NOTE | 2024-06-15 07:56 | DI.CT.S_ITS ---
PROCEDURE: CT HIP LEFT WITHOUT CON INDICATIONS: f/u XR for possible medial transcervical femoral fracture TECHNIQUE: Noncontrast 3 mm axial sections acquired through the bony pelvis. Additional 3 mm axial sections acquired through the symptomatic hip joint, with coronal and sagittal reformats. COMPARISON: [facility], CR, XR HIP W PEL IF DONE LT 2V, 06/08/2024, 12:34. FINDINGS: Image quality: Excellent. Bones: Osteoarthritic changes are noted in bilateral hip joints. There is cortical irregularity involving mid to medial portion of left inferior pubic ramus suggestive of a minimally displaced fracture series 2, image 70. Subtle minimally displaced fracture involving lateral left superior pubic ramus/anterior left acetabulum is also seen series 6, image 43. There is subtle cortical irregularity in very subtle radiolucency involving subcapital region of left femoral neck concerning for subtle incomplete or nondisplaced fracture in this area best seen on series 5 image 49 and series 4 image 44. No other fracture or dislocation is seen. No evidence of avascular necrosis of femoral head. No suspicious bony lesions. Soft tissues: There is no significant soft tissue edema or swelling. No significant left hip joint effusion is seen. No soft tissue mass or drainable fluid collection. No abnormal soft tissue calcifications. No peritoneal free fluid or free air. Diffuse bladder wall thickening is noted with enlarged prostate gland and mass effect on floor of urinary bladder. Right greater than left bilateral inguinal hernia is seen containing fat only. No gross pelvic lymphadenopathy by size criteria. IMPRESSION: 1. Finding is concerning for a subtle nondisplaced or incomplete fracture involving subcapital region of left femoral neck. 2. Minimally displaced fracture involving mid to medial aspect of left inferior pubic ramus. Nondisplaced fracture involving lateral aspect of left superior pubic ramus/anterior wall of acetabulum. 3. No other fracture or dislocation. [id number] bilateral hip joint osteoarthritis. No evidence of avascular necrosis of femoral head. 4. No gross soft tissue mass or abnormal soft tissue calcifications. No drainable fluid collection. No pelvic free fluid or free air. Dictated by: Quentin Hanson M.D. on 06/15/2024 at 9:02 Approved by: Quentin Hanson M.D. on 06/15/2024 at 9:10
== END ==
PROVIDERS: Family Provider Family Medicine; PCP Family Medicine; Referring Provider Nurse Practitioner Family; Visit Provider Nurse Practitioner Family
DX: S72.032A Displaced midcervical fracture of left femur, initial encounter for closed fracture (principal); S32.592A Other specified fracture of left pubis, initial encounter for closed fracture; S32.415A Nondisplaced fracture of anterior wall of left acetabulum, initial encounter for closed fracture; M16.0 Bilateral primary osteoarthritis of hip; X58.XXXA Exposure to other specified factors, initial encounter
CPT/HCPCS: 73700